=== PATIENT | male | born 1970 | race Caucasian/White ===

== ENCOUNTER 2018-09-03 21:17 | Emergency (ER) | payer SELFPAY ==
[2018-09-03] MEDS ORDERED: LORAZEPAM 1 MG TABLET ONE (22:20)
--- NOTE | 2018-09-03 23:48 | ER ---
Nurse's Notes [facility] Name: Mohan Lou Age: 47 yrs Sex: Male : 1970 Arrival Date: 09/03/2018 Time: 21:30 Bed 17 Private MD: Diagnosis: Adverse effect of amphetamines Presentation: 09/03 21:30 Presenting complaint: EMS states: Called for patient with complaint of visual and lp1 auditory hallucinations; States hx of schizoaffective disorder; States "I usually hear the voices but it's more pronounced today"; Patient states suicidal ideation, plan to use rope for self-harm; States using meth 2 days ago. Transition of care: patient was not received from another setting of care. Onset of symptoms was September 03, 2018. Risk Assessment: Do you want to hurt yourself or someone else? Patient reports desire/thoughts of hurting themselves or someone else. Provider notified. Initial Sepsis Screen: Does the patient meet any 2 criteria? No. Patient's initial sepsis screen is negative. Does the patient have a suspected source of infection? No. Patient's initial sepsis screen is negative. Care prior to arrival: None. 21:30 Method Of Arrival: EMS: [facility] lp1 21:30 Acuity: FEDE 2 lp1 Historical: - Allergies: 21:35 No Known Allergies; lp1 - Home Meds: 21:35 Vistaril Oral [Active]; Prozac Oral [Active]; lp1 - PMHx: 21:35 Anxiety; Back pain; Borderline Diabetes; Depression; Hypertension; Schizo affective lp1 disorder; 21:38 hepatitis C; lp1 - PSHx: 21:35 Appendectomy; lp1 - Immunization history:: Adult Immunizations unknown. - Social history:: Smoking status: Patient uses tobacco products, denies chronic smoking, but will smoke occasionally, chewing tobacco. - Ebola Screening: : No symptoms or risks identified at this time. Screenin:35 Abuse screen: Denies threats or abuse. Denies injuries from another. Nutritional lp1 screening: No deficits noted. Tuberculosis screening: No symptoms or risk factors identified. Fall Risk None identified. Assessment: 21:38 General: Appears in no apparent distress. comfortable, Behavior is calm, cooperative, cc3 appropriate for age. Pain: Denies pain. Neuro: Level of Consciousness is awake, alert, obeys commands, Oriented to person, place, time, situation, Appropriate for age. Cardiovascular: Denies chest pain, Patient's skin is warm and dry. Respiratory: Airway is patent Respiratory effort is even, unlabored, Respiratory pattern is regular, symmetrical. GI: Abdomen is round. : No signs and/or symptoms were reported regarding the genitourinary system. EENT: No signs and/or symptoms were reported regarding the EENT system. Derm: Skin is intact, is healthy with good turgor, Skin is pink, warm \\T\\ dry. normal. Musculoskeletal: Circulation, motion, and sensation intact. Range of motion: intact in all extremities. 22:02 Reassessment: Dr. Davis at bedside to discuss care with patient; Patient denies any lp1 suicidal or homicidal ideations, states "I just need somewhere to sleep for a bit". 23:48 Reassessment: Patient appears in no apparent distress at this time. Patient comfortably cc3 sleeping, kept undisturbed. Dr. Davis ordered discharge for the patient but to keep the patient for some time so he could get some sleep, charge nurse Candie bedolla. 09/04 00:25 Reassessment: Patient appears in no apparent distress at this time. Patient comfortably cc3 sleeping. 01:18 Reassessment: Patient appears in no apparent distress at this time. Patient comfortably cc3 sleeping, kept undisturbed. 02:25 Reassessment: Patient appears in no apparent distress at this time. Patient comfortably cc3 sleeping, kept undisturbed. 03:30 Reassessment: Patient appears in no apparent distress at this time. Patient sleeping, cc3 kept undisturbed. 04:16 Reassessment: Patient appears in no apparent distress at this time. Patient still cc3 sleeping, kept undisturbed. 05:30 Reassessment: Patient appears in no apparent distress at this time. Patient and/or cc3 family updated on plan of care and expected duration. Pain level reassessed. Patient is alert, oriented x 3, equal unlabored respirations, skin warm/dry/pink. Patient denies pain at this time. Patient states feeling better. 06:00 Reassessment: Patient appears in no apparent distress at this time. Patient and/or cc3 family updated on plan of care and expected duration. Pain level reassessed. Patient is alert, oriented x 3, equal unlabored respirations, skin warm/dry/pink. Patient discharged home with discharge papers given. No IV cannula in situ. Patient left ER vitally stable and ambulatory. Patient denies pain at this time. Patient states feeling better. Psych: 09/03 21:30 Subjective: Patient's mood is appropriate Delusions are denied, Hallucinations are lp1 auditory, visual, Having thoughts of suicide. Plan for suicide is States plan to use rope for self-harm. Objective: Patient is cooperative, Speech is normal, Affect is appropriate. Interventions: Removed personal items and placed in bag. Patient placed in hospital gown. Searched person for dangerous items. Belonging list filled out. Suicide Risk Assessment: Sad Person Scale: Sex of patient: Male: Score 1 point. Age of patient: Score 0 point if patient falls outside of specified age parameters. Depression: Score 1 point if signs of depression are present. Previous Attempt: Score 1 point if patient has previously attempted suicide. Substance Abuse: Score 0 point if patient does not abuse alcohol or drugs. Rational Thinking: Score 1 point if patient is lacking rational thinking. Social Support: Score 1 point if social support is lacking and/or unavailable. Organized Plan: Score 1 point if patient had a plan in place. Relationship: Score 1 point if patient is , , , or for a single male Chronic Sickness: Score 0 point if patient does not have a chronic illness, debilitating, or severe disorder. TOTAL POINTS: If total points are 5-6, proposed clinical action is to strongly consider hospitalization, depending upon confidence in the follow-up arrangement. Implement suicide precautions. Safety Checks: Personal items have been removed. Door is open. No visitors are present at this time. Patient uses methamphetamines monthly, Patient uses tobacco chewing tobacco Frequency daily. 22:00 Commitment: Patient will be a voluntary commitment. cc3 Vital Signs: 21:33 BP 141 / 84; Pulse 120; Resp 18; Temp 98.7(O); Pulse Ox 95% on R/A; Weight 111.13 kg; lp1 Height 5 ft. 7 in. (170.18 cm); Pain 0/10; 22:18 BP 135 / 77; Pulse 112; Resp 17 S; Pulse Ox 97% on R/A; cc3 23:27 BP 138 / 71; Pulse 109; Resp 17 S; Pulse Ox 98% on R/A; cc3 09/04 00:36 BP 129 / 73; Pulse 97; Resp 17 S; Pulse Ox 98% on R/A; cc3 03:21 BP 118 / 87; Pulse 87; Resp 16 S; Pulse Ox 98% on R/A; cc3 05:51 BP 128 / 86; Pulse 85; Resp 16 S; Pulse Ox 96% on R/A; cc3 09/03 21:33 Body Mass Index 38.37 (111.13 kg, 170.18 cm) lp1 ED Course: 09/03 21:30 Patient arrived in ED. lp1 21:32 Arash Davis MD is Attending Physician. 21:33 Triage completed. lp1 21:33 Arm band placed on right wrist. lp1 21:38 Juana Cedeno is Primary Nurse. cc3 21:38 Patient has correct armband on for positive identification. Placed in gown. lp1 09/04 06:00 No provider procedures requiring assistance completed. Patient did not have IV access cc3 during this emergency room visit. Administered Medications: 09/03 22:05 Drug: Ativan 2 mg Route: PO; cc3 23:00 Follow up: Response: No adverse reaction cc3 Outcome: 23:48 Discharge ordered by . 09/04 06:00 Discharged to home ambulatory. cc3 Condition: stable Discharge instructions given to patient, Instructed on discharge instructions, follow up and referral plans. Demonstrated understanding of instructions, follow-up care. 06:10 Patient left the ED. cc3 Signatures: Niya Goldman RN RN 1 Arash Davis MD MD Juana Cedeno cc3
--- NOTE | 2018-09-03 23:48 | EDPHYS ---
Physician Documentation [facility] Name: Mohan Lou Age: 47 yrs Sex: Male : 1970 Arrival Date: 09/03/2018 Time: 21:30 Bed 17 Private MD: ED Physician Arash Davis HPI: 09/03 21:59 This 47 yrs old Male presents to ER via EMS with complaints of Psych Problem. gs 21:59 The patient presents to the emergency department with depression, paranoia, psychosis, gs a history of substance abuse, Type: methamphetamines. Onset: The symptoms/episode began/occurred acutely, 3 day(s) ago. Associated signs and symptoms: Pertinent positives; delusions, depression, hallucinations, suicide ideation, Pertinent negatives: chills, fever, suicide ideation. Severity of symptoms: At their worst the symptoms were moderate in the emergency department the symptoms are unchanged. The patient has experienced similar episodes in the past, a few times. The patient has not recently seen a physician. 22:03 no sleep 3-4 days on meth binge. gs Historical: - Allergies: 21:35 No Known Allergies; lp1 - Home Meds: 21:35 Vistaril Oral [Active]; Prozac Oral [Active]; lp1 - PMHx: 21:35 Anxiety; Back pain; Borderline Diabetes; Depression; Hypertension; Schizo affective lp1 disorder; 21:38 hepatitis C; lp1 - PSHx: 21:35 Appendectomy; lp1 - Immunization history:: Adult Immunizations unknown. - Social history:: Smoking status: Patient uses tobacco products, denies chronic smoking, but will smoke occasionally, chewing tobacco. - Ebola Screening: : No symptoms or risks identified at this time. ROS: 21:59 All other systems are negative. gs Exam: 21:59 Head/Face: Normocephalic, atraumatic. Eyes: Pupils equal round and reactive to light, gs extra-ocular motions intact. Lids and lashes normal. Conjunctiva and sclera are non-icteric and not injected. Cornea within normal limits. Periorbital areas with no swelling, redness, or edema. ENT: Nares patent. No nasal discharge, no septal abnormalities noted. Tympanic membranes are normal and external auditory canals are clear. Oropharynx with no redness, swelling, or masses, exudates, or evidence of obstruction, uvula midline. Mucous membranes moist. Neck: Trachea midline, no thyromegaly or masses palpated, and no cervical lymphadenopathy. Supple, full range of motion without nuchal rigidity, or vertebral point tenderness. No Meningismus. Chest/axilla: Normal chest wall appearance and motion. Nontender with no deformity. No lesions are appreciated. Respiratory: Lungs have equal breath sounds bilaterally, clear to auscultation and percussion. No rales, rhonchi or wheezes noted. No increased work of breathing, no retractions or nasal flaring. Abdomen/GI: Soft, non-tender, with normal bowel sounds. No distension or tympany. No guarding or rebound. No evidence of tenderness throughout. Back: No spinal tenderness. No costovertebral tenderness. Full range of motion. Skin: Warm, dry with normal turgor. Normal color with no rashes, no lesions, and no evidence of cellulitis. MS/ Extremity: Pulses equal, no cyanosis. Neurovascular intact. Full, normal range of motion. Neuro: Awake and alert, GCS 15, oriented to person, place, time, and situation. Cranial nerves II-XII grossly intact. Motor strength 5/5 in all extremities. Sensory grossly intact. Cerebellar exam normal. Normal gait. 21:59 Constitutional: The patient appears alert, awake. 21:59 Cardiovascular: Rate: tachycardic, Rhythm: regular, Pulses: no pulse deficits are appreciated. 21:59 Psych: Affect is calm, Oriented to person, place, time, Patient has no thoughts/intents to harm self or others. Judgement / Insight is impaired. Vital Signs: 21:33 BP 141 / 84; Pulse 120; Resp 18; Temp 98.7(O); Pulse Ox 95% on R/A; Weight 111.13 kg; lp1 Height 5 ft. 7 in. (170.18 cm); Pain 0/10; 22:18 BP 135 / 77; Pulse 112; Resp 17 S; Pulse Ox 97% on R/A; cc3 23:27 BP 138 / 71; Pulse 109; Resp 17 S; Pulse Ox 98% on R/A; cc3 07/05 00:36 BP 129 / 73; Pulse 97; Resp 17 S; Pulse Ox 98% on R/A; cc3 03:21 BP 118 / 87; Pulse 87; Resp 16 S; Pulse Ox 98% on R/A; cc3 05:51 BP 128 / 86; Pulse 85; Resp 16 S; Pulse Ox 96% on R/A; cc3 09/03 21:33 Body Mass Index 38.37 (111.13 kg, 170.18 cm) lp1 MDM: 09/03 21:36 Patient medically screened. gs 21:59 Differential diagnosis: drug withdrawal. acute psychotic break, depression, psychosis gs secondary to non-compliance. Data reviewed: vital signs, nurses notes. Administered Medications: 22:05 Drug: Ativan 2 mg Route: PO; cc3 23:00 Follow up: Response: No adverse reaction cc3 Disposition: 09/03/18 23:48 Discharged to Home. Impression: Adverse effect of amphetamines. - Condition is Stable. - Discharge Instructions: Stimulant Use Disorder-Methamphetamines. - Medication Reconciliation Form, Thank You Letter, Antibiotic Education, Prescription Opioid Use form. - Follow up: Private Physician; When: 2 - 3 days; Reason: Re-evaluation by your physician. Signatures: Niya Goldman RN RN [facility] Arash Davis MD MD Juana Cedeno 3 Corrections: (The following items were deleted from the chart) 09/04 06:10 09/03 23:48 09/03/2018 23:48 Discharged to Home. Impression: Adverse effect of cc3 amphetamines. Condition is Stable. Forms are Medication Reconciliation Form, Thank You Letter, Antibiotic Education, Prescription Opioid Use. Follow up: Private Physician; When: 2 - 3 days; Reason: Re-evaluation by your physician. gs
== END 2018-09-04 06:10 | disposition home or self-care (01) ==
LOC: ER 21:17
DX: F15.951 Other stimulant use, unspecified with stimulant-induced psychotic disorder with hallucinations (principal); T43.625A Adverse effect of amphetamines, initial encounter; F25.9 Schizoaffective disorder, unspecified; F17.220 Nicotine dependence, chewing tobacco, uncomplicated
CPT/HCPCS: 99284

== ENCOUNTER 2018-11-17 04:24 | Inpatient (IN) | payer SELFPAY ==
--- OUTSIDE RECORDS SUMMARY | 2018-11-17 04:27 | XMS REPORT ---
:1970 [facility] [address] [place] [address] Care Team Providers Name Role Phone UNKNOWN, REFFERING Primary Care Provider Unavailable CARLY BIRCH M.D. Unavailable Unavailable Problems This patient has no known problems. Allergies, Adverse Reactions, Alerts This patient has no known allergies or adverse reactions. Medications This patient has no known medications. Results Test Description Test Time Test Comments Text Results Atomic Results Result Comments Troponin T 2018-09-14 09:45:49 Test Item Value Reference Range Comments Troponin-T (test <6.000 ng/L 0.000-22.000 The CV of the assay at 99th code=Troponin-T) percentile for both male and female patient population is < 10%. A rise and fall in TAWANNA with at least one value above the 99th percentile with clinical evidence of myocardial ischemia would support a diagnosis of AMI. A delta of at least 20% is recommended to access acute changes in results above the 99th percentile in serial measurements. Stable TAWANNA levels (<20%) delta above the 99th percentile URL would support a diagnosis of chronic myocardial injury. Triiodothyronine [id number] 08:26:05 Test Item Value Reference Range Comments T3 Total (test code=T3 Total) 85.1 ng/dL 80.0-200.0 Thyroid Stimulating [id number] 08:24:29 Test Item Value Reference Range Comments TSH (test code=TSH) 12.330 mIU/mL 0.270-4.200 Thyroxine Free [id number] 08:24:29 Test Item Value Reference Range Comments T4 Free (test code=T4 Free) 0.966 ng/dL 0.930-1.700 RPR [id number] 12:49:16 Test Item Value Reference Range Comments RPR Qual (test code=RPR Qual) Non-Reactive Non-Reactive Reactive Control (test code=Reactive Control) Reactive Weak Reactive Control (test code=Weak Reactive Weak Reactive Control) Non-Reactive Control (test code=Non-Reactive Non-Reactive Control) Lot # (test code=Lot #) [id number] Expiration Dt (test code=Expiration Dt) 01-01-2020 Automated [id number] 07:50:05 Test Item Value Reference Range Comments Neutro Auto (test code=Neutro Auto) 61.4 % 36.0-70.0 Lymph Auto (test code=Lymph Auto) 27.1 % 12.0-44.0 Carl[place] Auto (test code=Carl[place] Auto) 7.9 % 0.0-11.0 Eos, Auto (test code=Eos, Auto) 2.3 % 0.0-7.0 Basophil Auto (test code=Basophil Auto) 0.7 % 0.0-2.0 Neutro Absolute (test code=Neutro Absolute) 8.8 x10 1.6-7.4 Lymph Absolute (test code=Lymph Absolute) 3.89 x10 .50-4.60 [place] Absolute (test code=[place] Absolute) 1.13 x10 .00-1.20 Eos Absolute (test code=Eos Absolute) 0.33 x10 0.00-0.74 Baso Absolute (test code=Baso Absolute) 0.10 x10 0.00-0.21 IG [id number] 07:50:05 Test Item Value Reference Range Comments IG (test code=IG) 0.6 % 0.0-5.0 IG Abs (test code=IG Abs) 0 x10 Complete Blood Count with [id number] 07:50:04 Test Item Value Reference Range Comments WBC (test code=WBC) 14.4 x10 4.4-10.5 RBC (test code=RBC) 4.90 x10 4.10-5.70 Hgb (test code=Hgb) 15.5 g/dL 13.4-17.4 MCV (test code=MCV) 94.70 fL 80.00-100.00 Hct (test code=Hct) 46.4 % 38.7-52.0 MCHC (test code=MCHC) 33.40 g/dL 32.00-37.50 RDW CV (test code=RDW CV) 13.8 % 11.5-14.5 MCH (test code=MCH) 31.6 pg 27.0-32.5 Platelets (test 368.0 x10 140.0-440.0 code=Platelets) MPV (test code=MPV) 9.9 fL Slide Review (test code=Slide Auto Auto Result created by Review) GL_SJM_SLIDE_REV_AUTO nRBC (test code=nRBC) 0 NRBC Abs (test code=NRBC Abs) 0.00 x10 IPF (test code=IPF) 0 % Thyroid Stimulating [id number] 07:49:53 Test Item Value Reference Range Comments TSH (test code=TSH) 12.640 mIU/mL 0.270-4.200 Lipid [id number] 07:43:10 Test Item Value Reference Range Comments Cholesterol Total (test 190 mg/dL 0-200 RISK OF HEART DISEASEPublished code=Cholesterol Total) by [place] [employer] Analyte Optimal Borderline Increased RiskCHOL <200 200-239 >240TRIG <150 150-199 >200HDL Male >60 <40HDL Female >60 <50LDL <100 130-159 >160LDL Near optimal is 100-129 Triglycerides (test 112 mg/dL 9-200 code=Triglycerides) HDL (test code=HDL) 29 mg/dL 40-60 LDL (test code=LDL) 138 mg/dL 0-130 The equation being used in this calculation is LDL=(Chol - HDL) - (Trig / 5) VLDL (test code=VLDL) 22 mg/dL 5-40 The equation being used in this calculation is VLDL=Trig / 5 Chol/HDL (test 6.6 ratio 0.0-5.0 code=Chol/HDL) Lipid [id number] 07:43:10 Test Item Value Reference Range Comments Cholesterol Total (test 190 mg/dL 0-200 RISK OF HEART DISEASEPublished code=Cholesterol Total) by [place] [employer] Analyte Optimal Borderline Increased RiskCHOL <200 200-239 >240TRIG <150 150-199 >200HDL Male >60 <40HDL Female >60 <50LDL <100 130-159 >160LDL Near optimal is 100-129 Triglycerides (test 112 mg/dL 9-200 code=Triglycerides) HDL (test code=HDL) 29 mg/dL 40-60 LDL (test code=LDL) 138 mg/dL 0-130 The equation being used in this calculation is LDL=(Chol - HDL) - (Trig / 5) VLDL (test code=VLDL) 22 mg/dL 5-40 The equation being used in this calculation is VLDL=Trig / 5 Chol/HDL (test 6.6 ratio 0.0-5.0 code=Chol/HDL) LDL/HDL Ratio (test 5 The equation being used in this code=LDL/HDL Ratio) calculation is LDL/HDL Ratio=LDL Calc/HDL Chol Comprehensive Metabolic [id number] 07:43:09 Test Item Value Reference Range Comments Sodium Level (test code=Sodium Level) 142.0 mmol/L 135.0-145.0 Potassium Level (test code=Potassium Level) 4.6 mmol/L 3.5-5.1 Chloride Level (test code=Chloride Level) 104 mmol/L 98-105 CO2 (test code=CO2) 27 mmol/L 22-29 Anion Gap (test code=Anion Gap) 11 mmol/L 7-16 BUN (test code=BUN) 23.90 mg/dL 6.00-20.00 Creatinine Level (test code=Creatinine Level) 1.30 mg/dL 0.70-1.20 BUN/Creat Ratio (test code=BUN/Creat Ratio) 18 Glucose Level (test code=Glucose Level) 111 mg/dL 70-115 Calcium Level (test code=Calcium Level) 9.1 mg/dL 8.3-10.5 Alk Phos (test code=Alk Phos) 70 U/L 40-129 Bilirubin Total (test code=Bilirubin Total) 0.8 mg/dL 0.1-0.9 Albumin Level (test code=Albumin Level) 4.4 g/dL 3.5-5.2 Protein Total (test code=Protein Total) 7.9 g/dL 6.4-8.3 ALT (test code=ALT) 49 U/L 1-41 AST (test code=AST) 44 U/L 1-40 Globulin (test code=Globulin) 3.5 g/dL 2.9-3.1 A/G Ratio (test code=A/G Ratio) 1.3 ratio Comprehensive Metabolic [id number] 07:43:09 Test Item Value Reference Range Comments Sodium Level (test 142.0 mmol/L 135.0-145.0 code=Sodium Level) Potassium Level (test 4.6 mmol/L 3.5-5.1 code=Potassium Level) Chloride Level (test 104 mmol/L 98-105 code=Chloride Level) CO2 (test code=CO2) 27 mmol/L 22-29 Anion Gap (test 11 mmol/L 7-16 code=Anion Gap) BUN (test code=BUN) 23.90 mg/dL 6.00-20.00 Creatinine Level (test 1.30 mg/dL 0.70-1.20 code=Creatinine Level) BUN/Creat Ratio (test 18 code=BUN/Creat Ratio) Glucose Level (test 111 mg/dL 70-115 code=Glucose Level) Calcium Level (test 9.1 mg/dL 8.3-10.5 code=Calcium Level) Alk Phos (test code=Alk 70 U/L 40-129 Phos) Bilirubin Total (test 0.8 mg/dL 0.1-0.9 code=Bilirubin Total) Albumin Level (test 4.4 g/dL 3.5-5.2 code=Albumin Level) Protein Total (test 7.9 g/dL 6.4-8.3 code=Protein Total) ALT (test code=ALT) 49 U/L 1-41 AST (test code=AST) 44 U/L 1-40 Globulin (test 3.5 g/dL 2.9-3.1 code=Globulin) A/G Ratio (test code=A/G 1.3 ratio Ratio) eGFR AA (test code=eGFR >60 mL/min/1.73 m2 eGFR (estimated AA) Glomerular Filtration Rate) is an estimated value, calculated from the patient's serum creatinine using the MDRD equation. It is NOT the patient's actual GFR. The eGFR provides a more clinically useful measure of kidney disease than serum creatinine alone.This calculation takes sex and race into account, if the information is provided. If the race is not provided, and the patient is -[place], multiply by 1.212. If sex is not provided, and the patient is female, multiply by 0.742. Results for patients <18 years of age have not been validated by the MDRD study and should be interpreted with caution. eGFR Result Interpretation:eGFR > or=60 is in the Normal RangeeGFR < 60 may mean kidney diseaseeGFR < 15 may mean kidney failure Ranges recommended by the National Kidney Foundation, http://nkdep.nih.gov Comprehensive Metabolic [id number] 07:43:09 Test Item Value Reference Range Comments Sodium Level (test 142.0 mmol/L 135.0-145.0 code=Sodium Level) Potassium Level (test 4.6 mmol/L 3.5-5.1 code=Potassium Level) Chloride Level (test 104 mmol/L 98-105 code=Chloride Level) CO2 (test code=CO2) 27 mmol/L 22-29 Anion Gap (test 11 mmol/L 7-16 code=Anion Gap) BUN (test code=BUN) 23.90 mg/dL 6.00-20.00 Creatinine Level (test 1.30 mg/dL 0.70-1.20 code=Creatinine Level) BUN/Creat Ratio (test 18 code=BUN/Creat Ratio) Glucose Level (test 111 mg/dL 70-115 code=Glucose Level) Calcium Level (test 9.1 mg/dL 8.3-10.5 code=Calcium Level) Alk Phos (test code=Alk 70 U/L 40-129 Phos) Bilirubin Total (test 0.8 mg/dL 0.1-0.9 code=Bilirubin Total) Albumin Level (test 4.4 g/dL 3.5-5.2 code=Albumin Level) Protein Total (test 7.9 g/dL 6.4-8.3 code=Protein Total) ALT (test code=ALT) 49 U/L 1-41 AST (test code=AST) 44 U/L 1-40 Globulin (test 3.5 g/dL 2.9-3.1 code=Globulin) A/G Ratio (test code=A/G 1.3 ratio Ratio) eGFR AA (test code=eGFR >60 mL/min/1.73 m2 eGFR (estimated AA) Glomerular Filtration Rate) is an estimated value, calculated from the patient's serum creatinine using the MDRD equation. It is NOT the patient's actual GFR. The eGFR provides a more clinically useful measure of kidney disease than serum creatinine alone.This calculation takes sex and race into account, if the information is provided. If the race is not provided, and the patient is -[place], multiply by 1.212. If sex is not provided, and the patient is female, multiply by 0.742. Results for patients <18 years of age have not been validated by the MDRD study and should be interpreted with caution. eGFR Result Interpretation:eGFR > or=60 is in the Normal RangeeGFR < 60 may mean kidney diseaseeGFR < 15 may mean kidney failure Ranges recommended by the National Kidney Foundation, http://nkdep.nih.gov eGFR Non-AA (test 59.70 mL/min/1.73 eGFR (estimated code=eGFR Non-AA) m2 Glomerular Filtration Rate) is an estimated value, calculated from the patient's serum creatinine using the MDRD equation. It is NOT the patient's actual GFR. The eGFR provides a more clinically useful measure of kidney disease than serum creatinine alone.This calculation takes sex and race into account, if the information is provided. If the race is not provided, and the patient is -[place], multiply by 1.212. If sex is not provided, and the patient is female, multiply by 0.742. Results for patients <18 years of age have not been validated by the MDRD study and should be interpreted with caution. eGFR Result Interpretation:eGFR > or=60 is in the Normal RangeeGFR < 60 may mean kidney diseaseeGFR < 15 may mean kidney failure Ranges recommended by the National Kidney Foundation, http://nkdep.nih.gov Alcohol [id number] 12:03:52 Test Item Value Reference Range Comments Ethanol Level (test <0.00 g/dL 0.00-0.01 Intoxicated 0.080 g/dL or more code=Ethanol Level) Ethanol Inst (test <0 code=Ethanol Inst) Comprehensive Metabolic [id number] 12:03:51 Test Item Value Reference Range Comments Sodium Level (test code=Sodium Level) 139.0 mmol/L 135.0-145.0 Potassium Level (test code=Potassium Level) 3.9 mmol/L 3.5-5.1 Chloride Level (test code=Chloride Level) 102 mmol/L 98-105 CO2 (test code=CO2) 23 mmol/L 22-29 Anion Gap (test code=Anion Gap) 14 mmol/L 7-16 BUN (test code=BUN) 27.30 mg/dL 6.00-20.00 Creatinine Level (test code=Creatinine Level) 1.30 mg/dL 0.70-1.20 BUN/Creat Ratio (test code=BUN/Creat Ratio) 21 Glucose Level (test code=Glucose Level) 158 mg/dL 70-115 Calcium Level (test code=Calcium Level) 8.3 mg/dL 8.3-10.5 Alk Phos (test code=Alk Phos) 72 U/L 40-129 Bilirubin Total (test code=Bilirubin Total) 1.0 mg/dL 0.1-0.9 Albumin Level (test code=Albumin Level) 4.5 g/dL 3.5-5.2 Protein Total (test code=Protein Total) 8.5 g/dL 6.4-8.3 ALT (test code=ALT) 57 U/L 1-41 AST (test code=AST) 59 U/L 1-40 Globulin (test code=Globulin) 4.0 g/dL 2.9-3.1 A/G Ratio (test code=A/G Ratio) 1.1 ratio Comprehensive Metabolic [id number] 12:03:51 Test Item Value Reference Range Comments Sodium Level (test 139.0 mmol/L 135.0-145.0 code=Sodium Level) Potassium Level (test 3.9 mmol/L 3.5-5.1 code=Potassium Level) Chloride Level (test 102 mmol/L 98-105 code=Chloride Level) CO2 (test code=CO2) 23 mmol/L 22-29 Anion Gap (test 14 mmol/L 7-16 code=Anion Gap) BUN (test code=BUN) 27.30 mg/dL 6.00-20.00 Creatinine Level (test 1.30 mg/dL 0.70-1.20 code=Creatinine Level) BUN/Creat Ratio (test 21 code=BUN/Creat Ratio) Glucose Level (test 158 mg/dL 70-115 code=Glucose Level) Calcium Level (test 8.3 mg/dL 8.3-10.5 code=Calcium Level) Alk Phos (test code=Alk 72 U/L 40-129 Phos) Bilirubin Total (test 1.0 mg/dL 0.1-0.9 code=Bilirubin Total) Albumin Level (test 4.5 g/dL 3.5-5.2 code=Albumin Level) Protein Total (test 8.5 g/dL 6.4-8.3 code=Protein Total) ALT (test code=ALT) 57 U/L 1-41 AST (test code=AST) 59 U/L 1-40 Globulin (test 4.0 g/dL 2.9-3.1 code=Globulin) A/G Ratio (test code=A/G 1.1 ratio Ratio) eGFR AA (test code=eGFR >60 mL/min/1.73 m2 eGFR (estimated AA) Glomerular Filtration Rate) is an estimated value, calculated from the patient's serum creatinine using the MDRD equation. It is NOT the patient's actual GFR. The eGFR provides a more clinically useful measure of kidney disease than serum creatinine alone.This calculation takes sex and race into account, if the information is provided. If the race is not provided, and the patient is -[place], multiply by 1.212. If sex is not provided, and the patient is female, multiply by 0.742. Results for patients <18 years of age have not been validated by the MDRD study and should be interpreted with caution. eGFR Result Interpretation:eGFR > or=60 is in the Normal RangeeGFR < 60 may mean kidney diseaseeGFR < 15 may mean kidney failure Ranges recommended by the National Kidney Foundation, http://nkdep.nih.gov Comprehensive Metabolic [id number] 12:03:51 Test Item Value Reference Range Comments Sodium Level (test 139.0 mmol/L 135.0-145.0 code=Sodium Level) Potassium Level (test 3.9 mmol/L 3.5-5.1 code=Potassium Level) Chloride Level (test 102 mmol/L 98-105 code=Chloride Level) CO2 (test code=CO2) 23 mmol/L 22-29 Anion Gap (test 14 mmol/L 7-16 code=Anion Gap) BUN (test code=BUN) 27.30 mg/dL 6.00-20.00 Creatinine Level (test 1.30 mg/dL 0.70-1.20 code=Creatinine Level) BUN/Creat Ratio (test 21 code=BUN/Creat Ratio) Glucose Level (test 158 mg/dL 70-115 code=Glucose Level) Calcium Level (test 8.3 mg/dL 8.3-10.5 code=Calcium Level) Alk Phos (test code=Alk 72 U/L 40-129 Phos) Bilirubin Total (test 1.0 mg/dL 0.1-0.9 code=Bilirubin Total) Albumin Level (test 4.5 g/dL 3.5-5.2 code=Albumin Level) Protein Total (test 8.5 g/dL 6.4-8.3 code=Protein Total) ALT (test code=ALT) 57 U/L 1-41 AST (test code=AST) 59 U/L 1-40 Globulin (test 4.0 g/dL 2.9-3.1 code=Globulin) A/G Ratio (test code=A/G 1.1 ratio Ratio) eGFR AA (test code=eGFR >60 mL/min/1.73 m2 eGFR (estimated AA) Glomerular Filtration Rate) is an estimated value, calculated from the patient's serum creatinine using the MDRD equation. It is NOT the patient's actual GFR. The eGFR provides a more clinically useful measure of kidney disease than serum creatinine alone.This calculation takes sex and race into account, if the information is provided. If the race is not provided, and the patient is -[place], multiply by 1.212. If sex is not provided, and the patient is female, multiply by 0.742. Results for patients <18 years of age have not been validated by the MDRD study and should be interpreted with caution. eGFR Result Interpretation:eGFR > or=60 is in the Normal RangeeGFR < 60 may mean kidney diseaseeGFR < 15 may mean kidney failure Ranges recommended by the National Kidney Foundation, http://nkdep.nih.gov eGFR Non-AA (test 59.70 mL/min/1.73 eGFR (estimated code=eGFR Non-AA) m2 Glomerular Filtration Rate) is an estimated value, calculated from the patient's serum creatinine using the MDRD equation. It is NOT the patient's actual GFR. The eGFR provides a more clinically useful measure of kidney disease than serum creatinine alone.This calculation takes sex and race into account, if the information is provided. If the race is not provided, and the patient is -[place], multiply by 1.212. If sex is not provided, and the patient is female, multiply by 0.742. Results for patients <18 years of age have not been validated by the MDRD study and should be interpreted with caution. eGFR Result Interpretation:eGFR > or=60 is in the Normal RangeeGFR < 60 may mean kidney diseaseeGFR < 15 may mean kidney failure Ranges recommended by the National Kidney Foundation, http://nkdep.nih.gov Drugs of Abuse Urine [id number] 11:46:06 Test Item Value Reference Range Comments Amphetamine Screen Ur (test POSITIVE Negative For diagnostic purposes code=Amphetamine Screen Ur) only. Positive results should always be assessed in conjunction with a patient's medical history. Barbiturate Screen Ur (test Negative Negative code=Barbiturate Screen Ur) Benzodiazepines Ur (test Negative Negative code=Benzodiazepines Ur) Cocaine Screen Ur (test Negative Negative code=Cocaine Screen Ur) U Methadone (test code=U Negative Negative Methadone) Opiate Screen Ur (test Negative Negative code=Opiate Screen Ur) U PCP Scrn (test code=U PCP Negative Negative Scrn) U Propoxyphene (test code=U Negative Negative Propoxyphene) Cannabinoid Screen Ur (test Negative Negative code=Cannabinoid Screen Ur) Complete Blood Count with [id number] 11:31:26 Test Item Value Reference Range Comments WBC (test code=WBC) 19.4 x10 4.4-10.5 RBC (test code=RBC) 4.93 x10 4.10-5.70 Hgb (test code=Hgb) 15.6 g/dL 13.4-17.4 MCV (test code=MCV) 92.90 fL 80.00-100.00 Hct (test code=Hct) 45.8 % 38.7-52.0 MCHC (test code=MCHC) 34.10 g/dL 32.00-37.50 RDW CV (test code=RDW CV) 13.8 % 11.5-14.5 MCH (test code=MCH) 31.6 pg 27.0-32.5 Platelets (test 376.0 x10 140.0-440.0 code=Platelets) MPV (test code=MPV) 9.5 fL Slide Review (test code=Slide Auto Auto Result created by Review) GL_SJM_SLIDE_REV_AUTO nRBC (test code=nRBC) 0 NRBC Abs (test code=NRBC Abs) 0.00 x10 IPF (test code=IPF) 0 % Automated [id number] 11:31:26 Test Item Value Reference Range Comments Neutro Auto (test code=Neutro Auto) 75.5 % 36.0-70.0 Lymph Auto (test code=Lymph Auto) 16.1 % 12.0-44.0 [place] Auto (test code=[place] Auto) 6.0 % 0.0-11.0 Eos, Auto (test code=Eos, Auto) 1.1 % 0.0-7.0 Basophil Auto (test code=Basophil Auto) 0.7 % 0.0-2.0 Neutro Absolute (test code=Neutro Absolute) 14.6 x10 1.6-7.4 Lymph Absolute (test code=Lymph Absolute) 3.13 x10 .50-4.60 [place] Absolute (test code=[place] Absolute) 1.16 x10 .00-1.20 Eos Absolute (test code=Eos Absolute) 0.21 x10 0.00-0.74 Baso Absolute (test code=Baso Absolute) 0.13 x10 0.00-0.21 IG [id number] 11:31:26 Test Item Value Reference Range Comments IG (test code=IG) 0.6 % 0.0-5.0 IG Abs (test code=IG Abs) 0 x10 Glycosylated [id number] 10:09:00 Test Item Value Reference Range Comments HBA1c (test code=HBA1C) 5.7 % 4.8-5.9 Basic Metabolic [id number] 09:44:00 Test Item Value Reference Range Comments Sodium (test code=NA) 137 mmol/L 135-145 Potassium (test code=K) 4.2 mmol/L 3.5-5.1 Chloride (test code=CL) 100 mmol/L 98-105 Carbon Dioxide (test 27 mmol/L 22-29 code=CO2) Glucose (test code=GLU) 84 mg/dL 70-115 Blood Urea Nitrogen 19 mg/dL 6-20 (test code=BUN) Creatinine (test 1.0 mg/dL 0.7-1.2 code=CREAT) Calcium (test code=CA) 8.7 mg/dL 8.3-10.5 BUN/Creatinine Ratio 19.0 (test code=BCRATIO) Anion Gap (test 10 mmol/L 7-16 code=AGAP) Estimated GFR (test >60 mL/min/1.73m2 eGFR (estimated Glomerular code=GFR) Filtration Rate) is an estimated value,calculated from the patient's serum creatinine using the MDRD equation.It is NOT the patient's actual GFR. The eGFR provides a more clinicallyuseful measure of kidney disease than serum creatinine alone.This calculation takes sex and race into account, if the informationis provided. If the race is not provided, and the patient isAfrican-[place], multiply by 1.212. If sex is not provided, and thepatient is female, multiply by 0.742. Results for patients <18 years ofage have not been validated by the MDRD study and should be interpretedwith caution.eGFR Result Interpretation:eGFR > or=60 is in the Normal RangeeGFR < 60 may mean kidney diseaseeGFR < 15 may mean kidney failureRanges recommended by the National Kidney Foundation,http://nkdep.nih .gov CBC with [id number] 09:31:00 Test Item Value Reference Range Comments WBC (test code=WBC) 11.6 K/cumm 4.4-10.5 RBC (test code=RBC) 4.55 M/cumm 4.10-5.70 Hemoglobin (test code=HGB) 14.5 gm/dL 13.4-17.4 Hematocrit (test code=HCT) 42.4 % 38.7-52.0 MCV (test code=MCV) 93.2 fL 80-100 MCH (test code=MCH) 31.8 pg 27.0-32.5 MCHC (test code=MCHC) 34.1 g/dL 32.0-37.5 RDW (test code=RDW) 12.7 % 11.5-14.5 Platelet Count (test code=PLTCT) 307 K/cumm 140-440 MPV (test code=MPV) 7.6 fL Diff Method (test code=DIFFM) Auto Neutrophil (test code=NEUT) 46.0 % 36-70 Lymphocyte (test code=LYMPH) 43.1 % 12-44 Monocyte (test code=MONO) 7.6 % 0-11 Eosinophil (test code=EOS) 2.5 % 0-7 Basophil (test code=BASO) 0.7 % 0-2 Neutro Abs (test code=ANEUT) 5.3 K/cumm 1.6-7.4 Lymph Abs (test code=ALYMPH) 5.0 K/cumm 0.5-4.6 [place] Abs (test code=AMONO) 0.9 K/cumm 0.0-1.2 Eos Abs (test code=AEOS) 0.29 K/cumm 0.00-0.74 Baso Abs (test code=ABASO) 0.1 K/cumm 0.00-0.21 RPR, [id number] 13:38:00 Test Item Value Reference Range Comments RPR (test code=RPR) Non-Reactive Non-Reactive Thyroid Stimulating Hormone (TSH)2016-11-27 07:41:00 Test Item Value Reference Range Comments TSH (test code=TSH) 2.18 mIU/mL 0.270-4.200 Lipid [id number] 07:33:00 Test Item Value Reference Range Comments Cholesterol (test 226 mg/dL 0-200 code=CHOL) Triglycerides (test 229 mg/dL 9-200 code=TRIG) HDL (test code=HDL) 27 mg/dL 40-60 Chol/HDL (test 8.4 Ratio 0.0-5.0 code=CHOLPHDL) LDL, Calculated (test 153 0-130 (NOTE)RISK OF HEART code=LDLC) DISEASEPublished by [place] Heart AssociationAnalyte Optimal Boderline Increased RiskCHOL <200 200-239 >240TRIG <150 150-199 >200HDL Male: >60 <40HDL Female: >60 <50LDL <100 130-159 >160LDL NEAR OPTIMAL IS 100-129 VLDL (test code=VLDL) 46 mg/dL 5-40 LDL/HDL (test code=LDLPHDL) 6 Comprehensive Metabolic [id number] 17:07:00 Test Item Value Reference Range Comments Sodium (test code=NA) 133 mmol/L 135-145 Potassium (test code=K) 4.1 mmol/L 3.5-5.1 Chloride (test code=CL) 97 mmol/L 98-105 Carbon Dioxide (test 22 mmol/L 22-29 code=CO2) Glucose (test code=GLU) 120 mg/dL 70-115 Blood Urea Nitrogen (test 32 mg/dL 6-20 code=BUN) Creatinine (test 1.5 mg/dL 0.7-1.2 code=CREAT) Calcium (test code=CA) 9.6 mg/dL 8.3-10.5 Prot Total (test code=TP) 8.8 g/dL 6.4-8.3 Albumin (test code=ALB) 4.7 g/dL 3.5-5.2 A/G Ratio (test 1.1 Ratio code=AGRATIO) Globulin (test code=GLOB) 4.1 2.9-3.1 Bili Total (test 1.1 mg/dL 0.1-0.9 code=TBIL) Alk Phos (test 94 U/L 40-129 code=APHOS) AST (test code=AST) 23 U/L 1-40 ALT (test code=ALT) 18 U/L 1-41 BUN/Creatinine Ratio 21.3 (test code=BCRATIO) Anion Gap (test 14 mmol/L 7-16 code=AGAP) Estimated GFR (test 54 mL/min/1.73m2 eGFR (estimated Glomerular code=GFR) Filtration Rate) is an estimated value,calculated from the patient's serum creatinine using the MDRD equation.It is NOT the patient's actual GFR. The eGFR provides a more clinicallyuseful measure of kidney disease than serum creatinine alone.This calculation takes sex and race into account, if the informationis provided. If the race is not provided, and the patient isAfrican-[place], multiply by 1.212. If sex is not provided, and thepatient is female, multiply by 0.742. Results for patients <18 years ofage have not been validated by the MDRD study and should be interpretedwith caution.eGFR Result Interpretation:eGFR > or=60 is in the Normal RangeeGFR < 60 may mean kidney diseaseeGFR < 15 may mean kidney failureRanges recommended by the National Kidney Foundation,http://nkdep.nih .gov [id number] 17:07:00 Test Item Value Reference Range Comments Amphetamine (test code=AMPH) Negative Negative For diagnostic purposes only, positive results should always be assessedin conjunctionwith the patient's medical history,clinical examination and otherfindings.To fulfill legal requirements, a more specific alternate chemical methodmust be used inorder to obtain a Confirmed analytical result. GC/MS is the preferred confirmatory method. Barbiturates (test code=YANET) Negative Negative Benzodiazepine (test Negative Negative code=COSTA) Cocaine (test code=COCA) Negative Negative Methadone (test code=MTHD) Negative Negative Opiates (test code=OPIA) Negative Negative PCP (test code=PCP) Negative Negative Propoxyphene (test Negative Negative code=PROPOX) THC (test code=THC) Negative Negative Alcohol, Urine (test <0.01 g/dL 0.00-0.01 code=ETOHU) Urinalysis [id number] 16:52:00 Test Item Value Reference Range Comments Color (test code=COLOR) Yellow Yellow,Straw,Pl yellow Clarity (test code=CLAR) Clear Clear Specific [place] (test code=SPGR) 1.027 1.001-1.035 pH (test code=PH) 5.0 5.0-9.0 Ketone (test code=KET) Negative mg/dL Negative Glucose (test code=GLUCUR) Negative mg/dL Negative Protein (test code=PROT) 25 mg/dL Negative Bilirubin (test code=BILI) Negative mg/dL Negative Occult Blood (test code=UDOB) Negative Negative Urobilinogen (test code=UROB) 1.0 mg/dL 0.2-1.0 Nitrite (test code=NIT) Negative Negative Leuk Esterase (test code=LEUK) Negative Negative Micros Exam (test code=MEXAM) Indicated Epithelial Cells (test code=EPI) 6-9 /LPF 0-30 WBC, Urine (test code=UWBC) 0-5 /HPF 0-5 RBC, Urine (test code=URBC) 0-3 /HPF 0-5 Bacteria (test code=BACT) Few /HPF CBC with [id number] 16:43:00 Test Item Value Reference Range Comments WBC (test code=WBC) 18.4 K/cumm 4.4-10.5 RBC (test code=RBC) 5.23 M/cumm 4.10-5.70 Hemoglobin (test code=HGB) 16.4 gm/dL 13.4-17.4 Hematocrit (test code=HCT) 48.6 % 38.7-52.0 MCV (test code=MCV) 93.0 fL 80-100 MCH (test code=MCH) 31.4 pg 27.0-32.5 MCHC (test code=MCHC) 33.8 g/dL 32.0-37.5 RDW (test code=RDW) 12.6 % 11.5-14.5 Platelet Count (test code=PLTCT) 370 K/cumm 140-440 MPV (test code=MPV) 7.5 fL Diff Method (test code=DIFFM) Auto Neutrophil (test code=NEUT) 60.0 % 36-70 Lymphocyte (test code=LYMPH) 31.2 % 12-44 Monocyte (test code=MONO) 7.2 % 0-11 Eosinophil (test code=EOS) 0.9 % 0-7 Basophil (test code=BASO) 0.7 % 0-2 Neutro Abs (test code=ANEUT) 11.1 K/cumm 1.6-7.4 Lymph Abs (test code=ALYMPH) 5.7 K/cumm 0.5-4.6 [place] Abs (test code=AMONO) 1.3 K/cumm 0.0-1.2 Eos Abs (test code=AEOS) 0.17 K/cumm 0.00-0.74 Baso Abs (test code=ABASO) 0.1 K/cumm 0.00-0.21
[2018-11-17] MEDS ORDERED: NA CHLORIDE 0.9% 1,000 ML ONE ×2 (04:55→11:26)
[2018-11-17 05:11] LABS: Absolute Lymphocytes (CBC) 3.6 K/uL (0.7-4.9); Basophils % 0.4 % (0-1.3); Hematocrit 39.1 % (39.6-49.0); MPV 7.7 fL (7.6-11.3); RBC Red Blood Cell Count 4.24 M/uL (4.33-5.43)
[2018-11-17] MEDS ORDERED: NA CHLORIDE 0.9% 2,000 ML ONE (05:15)
[2018-11-17] MEDS ORDERED: NA CHLORIDE 0.9% 100 ML IV ONE (05:15)
[2018-11-17 05:22] LABS: Protime INR 1.06
[2018-11-17 05:31] LABS: Blood Morphology Comment NOT SEEN (NOT SEEN); Platelet Estimate ADEQ
[2018-11-17 05:46] LABS: ALT/SGPT 32 U/L (12-78); AST/SGOT 24 U/L (15-37); Albumin 3.7 g/dL (3.4-5.0); Alkaline Phosphatase 77 U/L (45-117); BUN Blood Urea Nitrogen 46 mg/dL (7-18); Bicarbonate 22 mmol/L (21-32); Bilirubin Direct 0.3 mg/dL (0-0.2); Bilirubin Total 1.3 mg/dL (0.2-1.0); Glucose Level 110 mg/dL (74-106); Magnesium 2.2 mg/dL (1.8-2.4); NT PRO-BNP 292 pg/mL (<125); Potassium 4.2 mmol/L (3.5-5.1); Protein, Total 8.2 g/dL (6.4-8.2); Sodium Level 129 mmol/L (136-145); Troponin (Emerg Dept Use Only) < 0.02 ng/mL (0.0-0.045)
[2018-11-17] MEDS ORDERED: PIPER/TAZO/NS 2.25gm 2.25 GM/100 ML BAG ONE (06:06)
[2018-11-17 06:53] LABS: Barbiturates NEGATIVE (NEGATIVE); Benzodiazepines NEGATIVE (NEGATIVE); Cocaine NEGATIVE (NEGATIVE); METHAMPHETAM POSITIVE (NEGATIVE); Methadone NEGATIVE (NEGATIVE); Opiates NEGATIVE (NEGATIVE); Phencyclidine NEGATIVE (NEGATIVE); THC Cannibis NEGATIVE (NEGATIVE)
--- NOTE | 2018-11-17 07:04 | ER ---
Nurse's Notes [facility] Name: Mohan Lou Age: 48 yrs Sex: Male : 1970 Arrival Date: 11/17/2018 Time: 04:25 Bed 7 Private MD: Diagnosis: Acute kidney failure;Syncope and collapse;LEUKOCYTOSIS Presentation: 11/17 04:58 Presenting complaint: Patient states: "I have fainted multiple times today"; Patient lp1 states injecting Meth on Friday and states feeling "weird" ever since. Transition of care: patient was not received from another setting of care. Onset of symptoms was November 17, 2018. Risk Assessment: Do you want to hurt yourself or someone else? Patient reports no desire to harm self or others. Initial Sepsis Screen: Does the patient meet any 2 criteria? Systolic BP < 90 mmHg. HR > 90 bpm. Yes Does the patient have a suspected source of infection? Yes: Other: Patient denies any symptoms. Care prior to arrival: None. 04:58 Method Of Arrival: Wheelchair lp1 04:58 Acuity: FEDE 2 lp1 Historical: - Allergies: 04:58 No Known Allergies; lp1 - Home Meds: 04:58 Prozac Oral [Active]; risperidone oral oral [Active]; Hydroxyzine Oral [Active]; lp1 - PMHx: 04:58 Anxiety; Back pain; Borderline Diabetes; Depression; Hepatitis C; Hypertension; Schizo lp1 affective disorder; - PSHx: 04:58 Appendectomy; lp1 - Immunization history:: Adult Immunizations up to date. - Social history:: Smoking status: Patient/guardian denies using tobacco, Patient uses street drugs, Methamphetamine (Meth). - Ebola Screening: : No symptoms or risks identified at this time. Screenin:00 Abuse screen: Denies threats or abuse. Denies injuries from another. Nutritional lp1 screening: No deficits noted. Tuberculosis screening: No symptoms or risk factors identified. Fall Risk Total Garner Fall Scale indicates High Risk Score (45 or more points). Fall prevention measures have been instituted. Side Rails Up X 2 Family Present and informed to notify staff if the need to leave the bedside As available patient and family educated on Fall Prevention Program and Strategies. Assessment: 05:01 General: Appears uncomfortable, Behavior is calm. Pain: Denies pain. Neuro: Level of lp1 Consciousness is awake, alert, obeys commands, Oriented to person, place, situation, [place] are equal bilaterally Moves all extremities. Full function Gait is unsteady, Speech is normal, Reports dizziness, a syncopal episode. Cardiovascular: Patient's skin is warm and dry. Respiratory: Respiratory effort is even, Respiratory pattern is regular, Breath sounds are clear bilaterally. GI: Abdomen is non-distended. : No signs and/or symptoms were reported regarding the genitourinary system. EENT: No signs and/or symptoms were reported regarding the EENT system. Derm: Skin is intact, Skin is dry, Skin is normal. Musculoskeletal: No signs and/or symptoms reported regarding the musculoskeletal system. 06:00 Reassessment: Patient appears in no apparent distress at this time. Patient is alert, lp1 oriented x 3, equal unlabored respirations, skin warm/dry/pink. 07:37 Reassessment: Patient appears in no apparent distress at this time. Patient and/or ph family updated on plan of care and expected duration. Pain level reassessed. Patient is alert, oriented x 3, equal unlabored respirations, skin warm/dry/pink. Pt resting quietly, family at bedside, awaiting room assignment, VSS. 08:42 Reassessment: Patient appears in no apparent distress at this time. No changes from [facility] previously documented assessment. Patient and/or family updated on plan of care and expected duration. Pain level reassessed. Patient is alert, oriented x 3, equal unlabored respirations, skin warm/dry/pink. ER and lab attempted to draw second set of blood cultures, unsuccessful, second set of blood cultures cancelled Patient denies pain at this time. 10:42 Reassessment: Diet tray requested at 0920, no tray was delivered, dietary reports the [facility] pt will have to wait until lunch is delievered. 12:20 Reassessment: Attempted to call report, nurse unavailable. jl 13:13 Reassessment: Attempted to call report, nurse unavailable. 7 Vital Signs: 04:56 BP 81 / 63; Pulse 113; Resp 20; Temp 97.7(O); Pulse Ox 99% on R/A; Weight 104.33 kg; lp1 Height 5 ft. 7 in. (170.18 cm); Pain 0/10; 05:10 BP 89 / 60; Pulse 101; Resp 17; Pulse Ox 98% on R/A; lp1 05:30 BP 91 / 56; Pulse 100; Resp 20; Pulse Ox 99% on R/A; lp1 06:15 BP 102 / 71; Pulse 93; Resp 22; Pulse Ox 100% on R/A; lp1 06:30 BP 104 / 72; Pulse 90; Resp 19; Pulse Ox 100% on R/A; lp1 07:17 BP 102 / 65; Pulse 92; Resp 18; Temp 97.8; Pulse Ox 100% on R/A; ph 08:42 BP 105 / 71; Pulse 103; Resp 16 S; Pulse Ox 100% on R/A; Pain 0/10; jl7 12:00 BP 110 / 68; Pulse 80; Resp 16 S; Pulse Ox 100% on R/A; jl7 04:56 Body Mass Index 36.02 (104.33 kg, 170.18 cm) lp1 ED Course: 04:25 Patient arrived in ED. ag3 04:40 Krishna Lanza MD is Attending Physician. tw4 04:45 Inserted saline lock: 20 gauge in left antecubital area, using aseptic technique. Blood lp1 collected. 04:45 EKG done, by ED staff, reviewed by Krishna Lanza MD. lp1 04:56 Niya Goldman, RN is Primary Nurse. lp1 04:57 Arm band placed on left wrist. lp1 05:00 Triage completed. lp1 05:00 Patient has correct armband on for positive identification. Placed in gown. Bed in low lp1 position. Call light in reach. Side rails up X2. laboratory monitor on. Pulse ox on. NIBP on. 05:07 X-ray completed. Portable x-ray completed in exam room. Patient tolerated procedure kw well. 05:07 XRAY Chest (1 view) In Process Unspecified. EDMS 05:15 First set of blood cultures drawn by me. Inserted saline lock: 18 gauge in right lp1 antecubital area, using aseptic technique. 05:28 Note: Patient is to have PE CT done without waiting for creatinine level per Dr. anibal Lanza.. 05:47 Notified ED physician of a critical lab result(s). Creatinine 5.17. lp1 06:11 CT Chest For PE Angio In Process Unspecified. EDMS 06:14 CT Head Brain wo Cont In Process Unspecified. EDMS 07:02 Alexa Buitrago MD is Hospitalizing Provider. tw4 07:38 No provider procedures requiring assistance completed. Patient admitted, IV remains in ph place. 08:52 Repeat lab(s) drawn. by id, sent to lab. jl7 Administered Medications: 04:56 Drug: NS 0.9% 1000 ml Route: IV; Rate: 1000 ml; Site: left antecubital; lp1 05:38 Follow up: IV Status: Completed infusion; IV Intake: 1000ml lp1 05:15 Drug: NS 0.9% (30 ml/kg) 30 ml/kg Route: IV; Rate: bolus; Site: left antecubital; lp1 12:34 Follow up: Response: No adverse reaction; IV Status: Completed infusion; IV Intake: jl7 2000ml 05:38 CANCELLED (Duplicate Order): NS 0.9% (30 ml/kg) 30 ml/kg IV at bolus once; Sepsis lp1 Protocol 06:06 Drug: Zosyn 2.25 grams Route: IVPB; Infused Over: 60 mins; Site: right antecubital; lp1 07:06 Follow up: Response: No adverse reaction; IV Status: Completed infusion jl7 Intake: 05:38 IV: 1000ml; Total: 1000ml. lp1 12:34 IV: 2000ml; Total: 3000ml. jl7 Output: 06:15 Urine: 300ml (Voided); Total: 300ml. lp1 07:17 Urine: 650ml (Voided); Total: 950ml. ph 09:23 Urine: 750ml (Voided); Total: 1700ml. ph Outcome: 07:03 Decision to Hospitalize by Provider. tw4 14:36 Admitted to Tele accompanied by tech, via wheelchair, room 216, with chart, Report jl7 called to [place]LLY [place] 14:36 Condition: stable 14:36 Discharge instructions given to patient, Instructed on the need for admit, Demonstrated understanding of instructions. 15:17 Patient left the ED. la1 Signatures: Dispatcher [employer] EDMS Sharita Ramos Laura, RN RN lp1 Harsha Pierson RN RN la1 Юлия Treadwell RN RN Camron Escoto, RN RN jl7 Krishna Lanza MD MD tw4 Valentina Regalado mw3 Danielle Estes ag3 Corrections: (The following items were deleted from the chart) 12:34 07:15 Response: No adverse reaction; IV Status: Completed infusion; IV Intake: 3129ml jl7 jl7
--- NOTE | 2018-11-17 07:04 | EDPHYS ---
Physician Documentation [facility] Name: Mohan Lou Age: 48 yrs Sex: Male : 1970 Arrival Date: 11/17/2018 Time: 04:25 Bed 7 Private MD: ED Physician Krishna Lanza HPI: 11/17 05:46 This 48 yrs old Male presents to ER via Wheelchair with complaints of tw4 Fainting. 05:46 The patient has experienced syncope. The patient has experienced syncope, lost tw4 consciousness. Onset: The symptoms/episode began/occurred today. Duration: This was a single episode. Context: the episode(s) was witnessed, by no one. Associated injury: The patient did not suffer any apparent associated injury. Associated signs and symptoms: The patient has no apparent associated signs or symptoms. The patient has not experienced similar symptoms in the past. pt admits to meth use 1.5 days ago. Historical: - Allergies: 04:58 No Known Allergies; lp1 - Home Meds: 04:58 Prozac Oral [Active]; risperidone oral oral [Active]; Hydroxyzine Oral [Active]; lp1 - PMHx: 04:58 Anxiety; Back pain; Borderline Diabetes; Depression; Hepatitis C; Hypertension; Schizo lp1 affective disorder; - PSHx: 04:58 Appendectomy; lp1 - Immunization history:: Adult Immunizations up to date. - Social history:: Smoking status: Patient/guardian denies using tobacco, Patient uses street drugs, Methamphetamine (Meth). - Ebola Screening: : No symptoms or risks identified at this time. ROS: 05:46 Constitutional: Negative for fever, chills, and weight loss, Eyes: Negative for injury, tw4 pain, redness, and discharge, Respiratory: Negative for shortness of breath, cough, wheezing, and pleuritic chest pain, Abdomen/GI: Negative for abdominal pain, nausea, vomiting, diarrhea, and constipation, Back: Negative for injury and pain, : Negative for injury, bleeding, discharge, and swelling, Skin: Negative for injury, rash, and discoloration. 05:46 Neuro: Positive for seizure activity. Exam: 05:46 Constitutional: This is a well developed, well nourished patient who is awake, alert, tw4 and in no acute distress. Head/Face: Normocephalic, atraumatic. Chest/axilla: Normal chest wall appearance and motion. Nontender with no deformity. No lesions are appreciated. Cardiovascular: Regular rate and rhythm with a normal S1 and S2. No gallops, murmurs, or rubs. Normal PMI, no JVD. No pulse deficits. Respiratory: Lungs have equal breath sounds bilaterally, clear to auscultation and percussion. No rales, rhonchi or wheezes noted. No increased work of breathing, no retractions or nasal flaring. Abdomen/GI: Soft, non-tender, with normal bowel sounds. No distension or tympany. No guarding or rebound. No evidence of tenderness throughout. Back: No spinal tenderness. No costovertebral tenderness. Full range of motion. MS/ Extremity: Pulses equal, no cyanosis. Neurovascular intact. Full, normal range of motion. Neuro: Awake and alert, GCS 15, oriented to person, place, time, and situation. Cranial nerves II-XII grossly intact. Motor strength 5/5 in all extremities. Sensory grossly intact. Cerebellar exam normal. Normal gait. Vital Signs: 04:56 BP 81 / 63; Pulse 113; Resp 20; Temp 97.7(O); Pulse Ox 99% on R/A; Weight 104.33 kg; lp1 Height 5 ft. 7 in. (170.18 cm); Pain 0/10; 05:10 BP 89 / 60; Pulse 101; Resp 17; Pulse Ox 98% on R/A; lp1 05:30 BP 91 / 56; Pulse 100; Resp 20; Pulse Ox 99% on R/A; lp1 06:15 BP 102 / 71; Pulse 93; Resp 22; Pulse Ox 100% on R/A; lp1 06:30 BP 104 / 72; Pulse 90; Resp 19; Pulse Ox 100% on R/A; lp1 07:17 BP 102 / 65; Pulse 92; Resp 18; Temp 97.8; Pulse Ox 100% on R/A; ph 08:42 BP 105 / 71; Pulse 103; Resp 16 S; Pulse Ox 100% on R/A; Pain 0/10; jl7 12:00 BP 110 / 68; Pulse 80; Resp 16 S; Pulse Ox 100% on R/A; jl7 04:56 Body Mass Index 36.02 (104.33 kg, 170.18 cm) lp1 MDM: 04:40 Patient medically screened. 11/17 04:46 Order name: Basic Metabolic Panel; Complete Time: 06:03 [facility] 11/17 06:03 Interpretation: Normal except: NA 129; CL 96; GLUC 110; BUN 46; CRE 5.17; GFR 12. 11/17 04:46 Order name: CBC with Diff; Complete Time: 06:03 [facility] 11/17 06:03 Interpretation: Normal except: WBC 22.6; RBC 4.24; HCT 39.1. 11/17 04:46 Order name: LFT's; Complete Time: 06:03 [facility] 11/17 06:03 Interpretation: Normal except: BILIT 1.3; BILID 0.3; GLOB 4.5; A/G 0.8. 11/17 04:46 Order name: Magnesium; Complete Time: 06:04 [facility] 11/17 06:04 Interpretation: Within normal limits: MG 2.2. 11/17 04:46 Order name: NT PRO-BNP; Complete Time: 06:03 [facility] 11/17 06:03 Interpretation: Normal except: NT PRO-BNP 292. 11/17 04:46 Order name: PT-INR; Complete Time: 06:04 [facility] 11/17 04:46 Order name: Troponin (emerg Dept Use Only); Complete Time: 07:00 [facility] 11/17 04:46 Order name: Urine Drug Screen; Complete Time: 07:00 [facility] 11/17 05:05 Order name: Salicylate; Complete Time: 06:04 11/17 06:04 Interpretation: Within normal limits: SHERRIE < 1.7. 11/17 05:05 Order name: Acetaminophen; Complete Time: 07:00 11/17 05:05 Order name: ETOH Level 11/17 05:13 Order name: Lactate; Complete Time: 07:00 [facility] 11/17 05:22 Order name: Blood Culture Adult (2) [facility] 11/17 05:31 Order name: Manual Differential; Complete Time: 07:00 EDMS 11/17 04:46 Order name: XRAY Chest (1 view) 11/17 04:46 Order name: EKG; Complete Time: 04:47 [facility] 11/17 04:46 Order name: Cardiac monitoring; Complete Time: 04:47 tw11/17 04:46 Order name: EKG - Nurse/Tech; Complete Time: 04:47 tw11/17 04:46 Order name: IV Saline Lock; Complete Time: 04:47 11/17 05:12 Order name: CT Head Brain wo Cont tw4 11/17 05:12 Order name: CT Chest For PE Angio tw4 11/17 06:17 Order name: Urine Dipstick--Ancillary (enter results) mw2 11/17 07:05 Order name: CK tw4 11/17 09:22 Order name: Diet Renal; Complete Time: 09:23 ph 11/17 10:43 Order name: Diet Renal; Complete Time: 10:44 jl7 11/17 12:50 Order name: Acetaminophen Level EDWV 11/17 04:46 Order name: Labs collected and sent; Complete Time: 04:47 tw4 11/17 04:46 Order name: O2 Per Protocol; Complete Time: 04:47 tw11/17 04:46 Order name: O2 Sat Monitoring; Complete Time: 04:47 EC:48 Rate is 110 beats/min. Rhythm is regular, Sinus tachycardia. QRS [place] is Normal. [place] tw4 interval is normal. QRS interval is normal. QT interval is normal. No Q waves. T waves are Flattened in leads III, V2. No ST changes noted. Clinical impression: Sinus tachycardia. Interpreted by me. Reviewed by me. Administered Medications: 04:56 Drug: NS 0.9% 1000 ml Route: IV; Rate: 1000 ml; Site: left antecubital; lp1 05:38 Follow up: IV Status: Completed infusion; IV Intake: 1000ml lp1 05:15 Drug: NS 0.9% (30 ml/kg) 30 ml/kg Route: IV; Rate: bolus; Site: left antecubital; lp1 12:34 Follow up: Response: No adverse reaction; IV Status: Completed infusion; IV Intake: jl7 2000ml 05:38 CANCELLED (Duplicate Order): NS 0.9% (30 ml/kg) 30 ml/kg IV at bolus once; Sepsis lp1 Protocol 06:06 Drug: Zosyn 2.25 grams Route: IVPB; Infused Over: 60 mins; Site: right antecubital; lp1 07:06 Follow up: Response: No adverse reaction; IV Status: Completed infusion jl7 Disposition: 11/17/18 07:03 Hospitalization ordered by Alexa Buitrago for Inpatient Admission. Preliminary diagnosis are Acute kidney failure, Syncope and collapse, LEUKOCYTOSIS. - Bed requested for Telemetry/MedSurg (Inpatient). - Status is Inpatient Admission. la1 - Condition is Fair. - Problem is new. - Symptoms are unchanged. UTI on Admission? No Signatures: Dispatcher [employer] EDMS Lena Michael Niya Goldman RN RN lp1 Harsha Pierson RN RN la1 Krishna Lanza MD MD tw4 Camron Silva RN jl7 Corrections: (The following items were deleted from the chart) 05:38 05:13 NS 0.9% (30 ml/kg) 30 ml/kg IV at bolus once; Sepsis Protocol ordered. 4 lp1 10:40 07:03 Hospitalization Ordered by Alexa Buitrago MD for Inpatient Admission. Preliminary bd diagnosis is Acute kidney failure; Syncope and collapse; LEUKOCYTOSIS. Bed requested for Telemetry/MedSurg (Inpatient). Status is Inpatient Admission. Condition is Fair. Problem is new. Symptoms are unchanged. UTI on Admission? No. tw4 12:06 10:40 11/17/2018 07:03 Hospitalization Ordered by Alexa Buitrago MD for Inpatient bd Admission. Preliminary diagnosis is Acute kidney failure; Syncope and collapse; LEUKOCYTOSIS. Bed requested for [facility] ER HOLD. Status is Inpatient Admission. Condition is Fair. Problem is new. Symptoms are unchanged. UTI on Admission? No. bd 15:17 12:06 11/17/2018 07:03 Hospitalization Ordered by Alexa Buitrago MD for Inpatient la1 Admission. Preliminary diagnosis is Acute kidney failure; Syncope and collapse; LEUKOCYTOSIS. Bed requested for Telemetry/MedSurg (Inpatient). Status is Inpatient Admission. Condition is Fair. Problem is new. Symptoms are unchanged. UTI on Admission? No. bd
[2018-11-17 07:12] LABS: Urine Blood 1+ (NEG); Urine Glucose NEGATIVE (NEG); Urine Protein 1+ (NEG); Urine pH 5.5 (5.0-7.0)
--- NOTE | 2018-11-17 08:24 | RAD REPORT ---
EXAM DESCRIPTION: RAD - Chest Single View - 11/17/2018 5:10 am CLINICAL HISTORY: PALPITATIONS Chest pain. COMPARISON: No comparisons FINDINGS: Portable technique limits examination quality. The lungs are grossly clear. The heart is upper limit of normal in size. No displaced fractures. IMPRESSION: No acute intrathoracic process suspected.
--- NOTE | 2018-11-17 10:50 | RAD REPORT ---
EXAM DESCRIPTION: CT Angiography Chest With Intravenous Contrast CLINICAL HISTORY: The patient is 48 years old and is Male; R/O PE TECHNIQUE: Axial computed tomographic angiography images of the chest with intravenous contrast. S agittal and coronal reformatted images were created and reviewed. This CT exam was performed using one or more of the following dose reduction techniques: automated exposure control, adjustment of t he mA and/or kV according to patient size, and/or use of iterative reconstruction technique. MIP re constructed images were created and reviewed. COMPARISON: No relevant prior studies available. FINDINGS: Pulmonary arteries: Unremarkable. No pulmonary embolism. Aorta: No acute findings. No thoracic aortic aneurysm. Lungs: Unremarkable. No mass. No consolidation. Pleural space: Unremarkable. No significant effusion. No pneumothorax. Heart: Unremarkable. No cardiomegaly. No significant pericardial effusion. No evidence of RV dysfunction. Bones/joints: No acute fracture. No dislocation. Soft tissues: Unremarkable. Lymph nodes: Unremarkable. No enlarged lymph nodes. IMPRESSION: No pulmonary embolus. No acute findings. Electronically signed by: Williams Warner MD 11/17/2018 6:20 AM CDT Due to temporary technical issues with the PACS/Fluency reporting system, reports are being signed by the in house radiologist as a courtesy to ensure prompt reporting. The interpreting radiologist is f ully responsible for the content of the report.
--- NOTE | 2018-11-17 10:51 | RAD REPORT ---
EXAM DESCRIPTION: CT Head Without Intravenous Contrast CLINICAL HISTORY: The patient is 48 years old and is Male; SYNCOPE TECHNIQUE: Axial computed tomography images of the head/brain without intravenous contrast. [place] and coronal reformatted images were created and reviewed. This CT exam was performed using one o r more of the following dose reduction techniques: automated exposure control, adjustment of the mA and/or kV according to patient size, and/or use of iterative reconstruction technique. COMPARISON: No relevant prior studies available. FINDINGS: Brain: Unremarkable. No hemorrhage. No significant white matter disease. No edema. Ventricles: Unremarkable. No ventriculomegaly. Bones/joints: Unremarkable. No acute fracture. Soft tissues: Unremarkable. Sinuses: Unremarkable as visualized. No acute sinusitis. Mastoid air cells: Unremarkable as visualized. No mastoid effusion. IMPRESSION: No acute intracranial findings. Electronically signed by: Williams Warner MD 11/17/2018 6:16 AM CDT Due to temporary technical issues with the PACS/Fluency reporting system, reports are being signed by the in house radiologist as a courtesy to ensure prompt reporting. The interpreting radiologist is f ully responsible for the content of the report.
[2018-11-17] MEDS ORDERED: ACETAMINOPHEN 500 MG TAB PO PRN (11:10)
[2018-11-17] MEDS ORDERED: ONDANSETRON 4 MG/2 ML VIAL IV PRN (11:10)
[2018-11-17] MEDS: NA CHLORIDE 0.9% 1,000 ML IV SCH ×3 (11:10→20:25)
--- NOTE | 2018-11-17 11:34 | EKG ---
Test Date: 2018-11-17 Test Time: 04:41:58 [place] Drier Tender: MEASUREMENT RESULTS: Intervals: Rate: 110 WY: 150 QRSD: 82 QT: 326 QTc: 441 [place]: P: 28 WY: 150 QRS: -6 T: 36 INTERPRETIVE STATEMENTS: Sinus tachycardia Inferior infarct, age undetermined Anterior infarct, age undetermined Abnormal ECG Compared to ECG 02/01/1995 15:38:00 Myocardial infarct finding now present Electronically Signed On 11-17-18 11:33:32 CDT by Ko Elena
--- NOTE | 2018-11-17 15:21 | P.CNS ---
Date of Consult: 11/17/18 Reason for Consult: MARVIN Chief Complaint: weakness, fainting History of Present Illness: A 48 y/o man with PMHx of bipolar disorder, HTN on lisniopril Pt presented for syncope episode and weakness Pt have no similar episodes before denied chest pain, headache , excessive sweating or diarrhea denied NSAID exposure in ER WBC 22, Cr 5.2, NA 129 exposed to contrast Allergies No Known Allergies Allergy (Unverified 09/10/15 16:58) Home Medications: Fluoxetine HCl [Prozac] 60 mg PO DAILY 11/17/18 Levothyroxine Sodium 88 mcg PO DAILY 11/17/18 Lisinopril 40 mg PO DAILY 11/17/18 Risperidone [Risperdal] 1 mg PO [id number] 11/17/18 Risperidone [Risperdal] 2 mg PO BEDTIME 11/17/18 hydrOXYzine HCl [Atarax] 50 mg PO BID MDD 100 mg 11/17/18 - Social History Smoking Status: Current some day smoker Physical Examination General: In no apparent distress, Oriented x3 HEENT: Atraumatic Neck: Supple, Without JVD or thyroid abnormality Respiratory: Clear to auscultation bilaterally, Normal air movement Cardiovascular: No edema, Normal pulses, Regular rate/rhythm, Normal S1 S2, No gallops, No rubs, No murmurs Gastrointestinal: Normal bowel sounds, Soft and benign, No tenderness Musculoskeletal: No swelling Laboratory Data (last 24 hrs) 11/17/18 04:45: PT 12.5, INR 1.06 11/17/18 04:45: WBC 22.6 H*, Hgb 13.7, Hct 39.1 L, Plt Count 340 11/17/18 04:45: Sodium 129 L, Potassium 4.2, BUN 46 H, Creatinine 5.17 H*, Glucose 110 H, Magnesium 2.2, Total Bilirubin 1.3 H, AST 24, ALT 32, Alkaline Phosphatase 77 - Problems (1) MARVIN (acute kidney injury) Current Visit: Yes Status: Acute Conclusions/Impression: MARVIN vs progressive CKD non oliguric Unknown baseline Cr , as per Pt no blood w/u done in the last 2yrs will order renal US and full serology w/u cont IVF I excpect that his RFT might deteriorate after contrast exposure if RFT cont to deteriorate then pt will to start on HD hyponatremia depletional vs SSRI dc SSRi IVF renal lytes will send for W/u Leuckocytosis F/U cultures Syncope as per primary team
--- NOTE | 2018-11-17 16:35 | RAD REPORT ---
EXAM DESCRIPTION: US - Renal Ultrasound-Complete - 11/17/2018 4:16 pm CLINICAL HISTORY: Acute renal insufficiency COMPARISON: None. FINDINGS: The right kidney measures 10 cm with an increased echotexture. The left kidney measures 11 cm with an increased echotexture. Hydronephrosis is not seen. No gross abnormality of bladder is seen IMPRESSION: Increased renal echotexture consistent with parenchymal disease
[2018-11-17 19:34] LABS: Urine Protein/Creatinine Ratio 0.56 ratio (<0.15)
[2018-11-17 19:36] LABS: Urine Appearance CLEAR; Urine Bilirubin NEGATIVE (NEG); Urine Blood TRACE (NEG); Urine Color YELLOW; Urine Glucose 2+ (NEG); Urine Protein NEGATIVE (NEG)
[2018-11-17 19:41] LABS: Urine Microscopic Reflex ORDER UMIC
[2018-11-17 19:59] LABS: Urine Bacteria <20 /HPF (NONE SEEN); Urine Culture Reflex Order NOT NEEDED; Urine RBC <5 /HPF (NONE SEEN)
[2018-11-17] MEDS: RISPERIDONE 0.25 MG TABLET PO SCH (20:24)
[2018-11-17] MEDS: hydrOXYzine HCl 25 MG TAB PO SCH (20:24)
[2018-11-17] MEDS ORDERED: HOME MED 1 EA UNK (Hydroxyzine Hcl [Atarax] 50 MG) PO SCH (21:00)
--- NOTE | 2018-11-17 23:11 | HP ---
Date of Admission: 11/17/2018 Chief Complaint: Syncope. History Of Present Illness: The patient is a 48-year-old male with past medical history of schizoaff ective disorder, hypothyroidism, hypertension, and hepatitis C, comes in for syncopal episode. Cristi stephanie states that he was in his usual state of health until night prior to admission when the patient to ok some IV methamphetamine and had multiple syncopal episodes. He was walking out of [employer] and had a fall. He otherwise denies any seizure-type activity. Patient does not recall how long h e was out for, but was less than a minute or so as he was picked up by bystanders. Patient again had episode of syncope at home. Otherwise, patient denies any fevers, chills, shortness of breath, naus ea, vomiting. States that he does remain hydrated. Patient's symptoms are constant, moderate, progr essively worsening. Therefore, came into the ER for further evaluation. Upon arrival, his workup re vealed a blood pressure of 81/63. He is tachycardic, did not have a fever. Patient was given 2 L of IV fluids with normal saline. Blood pressure improved. Workup revealed a creatinine of 5.17 with u nknown baseline, however, patient denies any history of kidney disease. CK level was also elevated. Tox screen was positive for amphetamines. Patient was referred for admission. When seen in the ER, he was awake, alert, and oriented x3, in some mild distress. Past Medical History: Schizoaffective disorder, hypertension, hypothyroidism, chronic back pain, bor derline diabetes, hepatitis C, depression. Past Surgical History: Appendectomy. Allergies: NO KNOWN DRUG ALLERGIES. Medications: Prozac, risperidone, hydroxyzine, levothyroxine as well as lisinopril. Social History: Patient smokes cigarettes socially. Drinks alcohol socially as well. No daily drin deborah. Patient does admit to using illicit drugs including methamphetamine through the IV. Usually s tays with his aunt. Family History: States that psychiatric illnesses run in the family. Review of Systems: Ten-point system reviewed, negative except as per HPI. Physical Examination: Vital Signs: Blood pressure 81/63, pulse 113, respirations 20, temperature 97.7, O2 of 99% on room a ir. General: Awake, alert, oriented x3, in some mild distress. Obese male. HEENT: Normocephalic, atraumatic. PERRLA. EOMI. Dry mucous membranes. Oropharynx is clear. Poor dentition. Conjunctiva is anicteric. Neck: Supple. No JVD. Trachea midline. CV: S1, S2. Sinus tachycardia. Peripheral pulses present. Respiratory: Moving air well bilaterally. No wheezing or stridor. No use of accessory muscles. Gastrointestinal: Abdomen is soft, nontender, nondistended. Positive bowel sounds. No guarding or rigidity. Extremities: No clubbing, cyanosis, or edema. No calf tenderness. Neuro: Cranial nerves 2 through 12 intact grossly. No focal neurological deficit. Speech is normal . Musculoskeletal: Point tenderness on the right chest wall from fall. No bruising or ecchymosis seen . Psych: Mood is okay. Affect is flat. Insight and judgment are fair. Skin: No rashes. Normal skin turgor. Laboratory Data: WBC 22.6, H and H 13.7 and 39.1, platelets 340, neutrophils 72%. INR 1.06. Sodium 129, potassium 4.2, chloride 96, CO2 of 22, BUN 46, creatinine 5.17, glucose 110, lactate 1.4, calci um 8.4, magnesium 2.2, total bilirubin 1.3, AST 24, ALT 32. CK level is 557. Troponin less than 0.0 2. BNP is 292. Albumin 3.7. UA is negative. Tox screen positive for amphetamine. Tylenol level i s 11.2 at 4:45 a.m. Imaging Studies: Head CT scan shows no acute intracranial finding. CT angio chest shows no pulmonar y embolus. No acute findings. Chest x-ray personally reviewed shows no acute intrathoracic process. EKG: Sinus tachycardia, rate of 110, inferior and anterior infarct, age undetermined, rate of 110. Assessment: A 48-year-old male with: 1.Acute syncopal episode, likely related to dehydration and hypotension. Blood pressure was 80s/60s . Initially, the patient is on methamphetamine. Patient has been counseled. We will continue with IV fluid resuscitation. Blood pressure is improved with initial bolus of 2 L. We will continue to m onitor. We will check orthostatic vital signs. 2.Methamphetamine abuse counseled. 3.Acute rhabdomyolysis secondary to above. 4.Acute kidney injury. Creatinine is 5.17. Patient does have electrolyte abnormalities, still lorna ng urine. Consult Nephrology. We will obtain renal ultrasound. No history of kidney disease in the past, likely related to prerenal azotemia versus acute tubular necrosis. 5.Hyponatremia. Continue with normal saline. We will monitor. 6.Rib pain. CT and x-ray did not show any fractures. Some mild tenderness to touch. We will provi de analgesia. 7.Schizoaffective disorder. Patient is on risperidone and Prozac, stable. 8.Hypothyroidism. We will check TSH level. Continue supplement. 9.Acute hypotension. We will hold lisinopril for now. Continue with IV fluid resuscitation, improv ing. 10.Chronic back pain, midline, without sciatica, stable. 11.Obesity, BMI 36. 12.History of chronic hepatitis C without coma. Plan: Admit the patient to Med-Surg, place as inpatient. Length of stay greater than 2 midnights. JORGE Voice ID: [id number]
[2018-11-18 05:23] LABS: Absolute Lymphocytes (CBC) 3.1 K/uL (0.7-4.9); Basophils % 0.8 % (0-1.3); Hematocrit 37.9 % (39.6-49.0); Lymphocytes % 24.1 % (15.3-44.8); MPV 7.8 fL (7.6-11.3); RBC Red Blood Cell Count 4.05 M/uL (4.33-5.43)
[2018-11-18] MEDS: RISPERIDONE 1 MG TABLET PO SCH (05:23)
[2018-11-18 05:53] LABS: Albumin 3.1 g/dL (3.4-5.0); Bilirubin Total 0.6 mg/dL (0.2-1.0); Magnesium 2.3 mg/dL (1.8-2.4); Phosphorus 3.7 mg/dL (2.5-4.9); Potassium 5.1 mmol/L (3.5-5.1); Protein, Total 7.4 g/dL (6.4-8.2); Thyroid Stimulating Hormone 1.84 uIU/mL (0.360-3.740); Uric Acid 4.5 mg/dL (3.5-7.2)
[2018-11-18] MEDS: NA CHLORIDE 0.9% 1,000 ML IV SCH ×4 (08:36→19:17)
[2018-11-18] MEDS: FLUOXETINE 20 MG CAP PO SCH (08:36)
[2018-11-18] MEDS: hydrOXYzine HCl 25 MG TAB PO SCH (08:37)
[2018-11-18] MEDS ORDERED: FLUOXETINE HCL 60 MG PO SCH (09:00)
[2018-11-18] MEDS ORDERED: LEVOTHYROXINE SOD 0.088 MG TAB PO SCH (09:00)
[2018-11-18 14:04] VITALS: BMI 35.8
--- NOTE | 2018-11-18 16:00 | PN ---
Date of Progress Note: 11/18/2018 Subjective: Patient seen and examined. Chart reviewed and case discussed with RN and Dr. Wells. Patient overall is doing better. No acute events overnight. Medications: List reviewed. Physical Examination: Vital Signs: Temperature 98, heart rate 80, blood pressure 97/50, respirations 16, O2 94% on room ai r. Orthostatic Vital Signs: Blood pressure lying down is 103/59, sitting up is 81/50, standing is 8 2/52 with a jump in the pulse from lying to sitting from 87 to 102. Positive orthostatic vital signs . General: Awake, alert, oriented x3, not in any acute distress. Obese male. CV: S1, S2. Regular rate and rhythm. Peripheral pulses present. Respiratory: Moving air well bilaterally. No wheezing or stridor. Gastrointestinal: Abdomen is soft, nontender, nondistended. Positive bowel sounds. No guarding or rigidity. Extremities: No clubbing, cyanosis, or edema. Neurologic: Cranial nerves 2 through 12 intact grossly. No focal neurological deficits. Speech is normal. Laboratory Data: Sodium 142, potassium 5.1, chloride 111, CO2 23, BUN 39, creatinine 2.7, glucose 96 , uric acid is 4.5, calcium 8.2, phosphorus 3.7, magnesium 2.3, albumin 3.1. TSH is 1.84. PTH is 64 .9, cortisol 4.41. WBC 12.9, H and H 13.1 and 37.9, platelets 311, neutrophils 63%. Hepatitis panel pending. Immunology panel also pending. Blood cultures, no growth to date. Renal ultrasound shows increased renal echotexture consistent with parenchymal disease. Assessment: A 48-year-old male with; 1.Acute syncopal episode, likely related to dehydration, hypotension. Patient's orthostatic vital s igns are positive. We will continue with IV fluids. Fall precautions. Continue PT evaluation. 2.Acute kidney injury. Creatinine was 5.17, improved down to 2.7. Patient does have some electroly te abnormalities. We will continue to monitor. Appreciate Nephrology input. Likely due to acute tu bular necrosis versus prerenal azotemia. 3.Acute rhabdomyolysis, atraumatic, secondary to above. We will recheck CPK level in a.m. 4.Methamphetamine abuse. Counseled. 5.Hyponatremia, corrected. 6.Rib pain, improving. No fracture seen on CT. 7.Schizoaffective disorder. Continue risperidone renally dosed and Prozac. 8.Hypothyroidism. TSH levels normal. Continue supplementation. 9.Acute hypotension. Lisinopril on hold. Continue with IV fluids. Patient is still orthostatic. 10.Chronic back pain, midline, without sciatica, stable. 11.Obesity, BMI 35.7. 12.History of chronic hepatitis C without coma, stable. 13.Deep vein thrombosis prophylaxis with SCDs. Plan: Continue IV fluids. Monitor kidney function and electrolytes. Likely discharge in the next 2 4 to 48 hours depending on clinical response. SA/MODL Voice ID: [id number] Report ID: [id number]
[2018-11-18 17:03] LABS: Rheumatoid Factor NEG (NEG)
[2018-11-18] MEDS: RISPERIDONE 0.25 MG TABLET PO SCH (20:17)
--- NOTE | 2018-11-19 03:01 | PN ---
Date of Progress Note: 11/18/2018 History: Patient was admitted with shortness of breath. Patient underwent CT chest with contrast. Creatinine on presentation 5.1. Creatinine continued to trend down. Patient feeling better. Physical Examination: Vital Signs: When I saw the patient, blood pressure 114/54, pulse of 80, afebrile. Patient had good urine output. Chest: Clear to auscultation. Heart: S1-S2 regular. Abdomen: Soft, nontender. Extremities: No edema. Laboratory Data: Sodium 142, potassium 4.1, bicarb 23, BUN 39, creatinine 2.7, GFR 26, calcium of 8. 2, uric acid 4.5, serum protein electrophoresis is still pending. PTH of 64. Cortisol of 4. PC rat io 0.5. Urine drug screen was positive for amphetamine. Assessment And Plan: 1.Acute kidney injury secondary to prerenal superimposed with contrast induced nephropathy, normal s ize kidney, proteinuric, nephrotic. I am going to go ahead and decrease IV fluid to 50. Hopefully i f tomorrow patient continues kidney function to improve, patient will be able to discontinue IV fluid and discharge. 2.Hypertension. Controlled optimal of blood pressure medication currently. 3.Shortness of breath, to follow up with primary. KRIS/NAGA Voice ID: [id number] Report ID: [id number]
[2018-11-19 04:46] LABS: Absolute Lymphocytes (CBC) 4.1 K/uL (0.7-4.9); Basophils % 1.2 % (0-1.3); Hematocrit 36.3 % (39.6-49.0); Lymphocytes % 39.5 % (15.3-44.8)
[2018-11-19 04:50] LABS: Albumin 2.9 g/dL (3.4-5.0); Bilirubin Total 0.4 mg/dL (0.2-1.0); Potassium 4.8 mmol/L (3.5-5.1)
[2018-11-19] MEDS: RISPERIDONE 1 MG TABLET PO SCH (05:27)
[2018-11-19] MEDS ORDERED: LEVOTHYROXINE SOD 0.088 MG TAB PO SCH (06:30)
[2018-11-19 09:28] VITALS: O2SAT 94
[2018-11-19] MEDS: NA CHLORIDE 0.9% 1,000 ML IV SCH (10:00)
[2018-11-19] MEDS: FLUOXETINE 20 MG CAP PO SCH (10:30)
[2018-11-19 17:16] VITALS: BP 119/74; TEMP 97
--- NOTE | 2018-11-20 03:19 | PN ---
Date of Progress Note: 11/19/2018 Subjective: Patient was admitted with acute kidney injury secondary to prerenal, superimposed with c ontrast-induced nephropathy. Kidney function has been improved significantly. Physical Examination: Vital Signs: Blood pressure 119/74, pulse of 64. Chest: Clear to auscultation. Heart: S1, S2. Regular. Abdomen: Soft, nontender. Extremities: No edema. Neurological: Oriented x3, nonfocal. Current Medications: Include Tylenol, fluoxetine, levothyroxine, risperidone, IV fluids. Laboratory Data: WBC 10.3, H and H of 12.6/36.3, platelets 300. Sodium 138, potassium 3.8, bicarb 2 5, BUN 31, creatinine 1.6, GFR of 44, calcium 8.3. Assessment And Plan: 1.Acute kidney injury secondary to prerenal, superimposed with contrast-induced nephropathy and SUSY inhibitor, recovering very well. Discontinue IV fluids. Patient is cleared from the renal standpoin t for discharge planning to follow up in the office in 2 weeks. 2.Hypertension. Keep holding SUSY inhibitor for the time being. We will follow up the patient as ou tpatient. 3.Colitis. Continue current antibiotic. Patient cleared from the renal standpoint for discharge bryson marrero. KRIS/NAGA Voice ID: [id number] Report ID: [id number]
--- NOTE | 2018-11-20 06:43 | DS ---
Date of Discharge: 11/19/2018 Consultants: Dr. Wells and Dr. Cardenas with nephrology. Admitting Diagnoses: 1.Syncopal episode, resolved. 2.Methamphetamine abuse. 3.Acute kidney injury. 4.Acute rhabdomyolysis. 5.Hyponatremia. 6.Rib pain. 7.Schizoaffective disorder. 8.Hypothyroidism. 9.Acute hypotension. 10.Chronic back pain, midline, without sciatica. 11.Obesity, BMI 36. 12.History of chronic hepatitis C without coma. Discharge Diagnoses: 1.Acute syncopal episode due to dehydration and orthostatic hypotension, improved. 2.Acute kidney injury, likely prerenal azotemia, resolving. 3.Acute rhabdomyolysis, atraumatic, improved. 4.Methamphetamine abuse, counseled. 5.Hyponatremia, corrected. 6.Rib pain, status post fall, improved. No fractures on CT. 7.Schizoaffective disorder, on risperidone. 8.Hypothyroidism, stable. 9.Acute hypotension, improved. Discontinue lisinopril. 10.Chronic back pain, midline, without sciatica, stable. 11.Obesity, BMI 35.7. 12.Chronic hepatitis C without coma, stable. Hospital Course: The patient is a 48-year-old male with past medical history of schizoaffective diso rder, hypothyroidism, hypertension, hepatitis C, comes in with syncopal episode. The patient does re port IV methamphetamine abuse. The patient sustained a fall, did not hit his head. He was out for f ew seconds, was helped up by bystanders. Did recall some rib pain. CT scan did not show any fractur es. The patient was found to have blood pressure of 81/63, was severely dehydrated, had rhabdomyolys is as well as acute kidney injury with a creatinine of 5.17. The patient was given IV fluid resuscit ation, which improved his kidney functions. Nephrology was consulted. Workup was completed. His wh ite blood cell count also normalized, likely acute phase reactant. His chest x-ray was clear. UA di d not show any infection either. The patient's electrolytes remained stable. He was able to ambulat e. His orthostatic vital signs were positive. He, however, improved with IV fluid resuscitation. H e was counseled to wait between changing positions, especially from lying to sitting and from sitting to standing. His lisinopril will be discontinued on discharge. He will need to follow up with neph rologist, Dr. Cardenas, in 2 weeks for repeat kidney function test and have blood pressure medication s adjusted and he needs to establish care with a primary care physician in 2 to 3 days. Diet: Renal. Activity: As tolerated. Medications: As per medication reconciliation list. Physical Examination: General: Awake, alert, and oriented x3, in no acute distress. Obese male. CV: S1, S2. Respiratory: Moving air well bilaterally. Abdomen: Soft, nontender, nondistended. Positive bowel sounds. Extremities: No clubbing, cyanosis, edema. Neurologic: Nonfocal. SA/MODL Voice ID: [id number] Report ID: [id number]
[2018-11-20 21:30] LABS: HBsAG Nonreactive (Nonreactive)
[2018-11-21 05:28] LABS: Albumin, (SPE) 3.2 g/dL (3.8-4.8); Alpha-1-Globulins 0.3 g/dL (0.2-0.3); Alpha-2-Globulins 0.8 g/dL (0.5-0.9); Gamma Globulins 1.6 g/dL (0.8-1.7); INTERPRETATION REPORT
[2018-11-22 16:14] LABS: HIV AG/AB 4TH GEN Non-reactive (Non-reactive)
[2018-11-23 09:43] LABS: Hep C Virus RNA (PCR)log ND
[2018-11-24 20:24] LABS: Hepatitis C Virus RNA (PCR)log 5.89 log IU/mL
== END 2018-11-19 18:46 | disposition home or self-care (01) | DRG 312 ==
LOC: ER 04:24 → ERHOLD 07:51 → 2ND 14:36
PROVIDERS: ADMIT Family Medicine; ATTEND Family Medicine
DX: I95.1 Orthostatic hypotension (principal); N17.9 Acute kidney failure, unspecified; M62.82 Rhabdomyolysis; E87.1 Hypo-osmolality and hyponatremia; E86.0 Dehydration; F15.10 Other stimulant abuse, uncomplicated; R07.81 Pleurodynia; F25.9 Schizoaffective disorder, unspecified; E03.9 Hypothyroidism, unspecified; M54.9 Dorsalgia, unspecified; E66.9 Obesity, unspecified; Z68.35 Body mass index [BMI] 35.0-35.9, adult; B18.2 Chronic viral hepatitis C; R79.89 Other specified abnormal findings of blood chemistry; N14.1 Nephropathy induced by other drugs, medicaments and biological substances; T50.8X5A Adverse effect of diagnostic agents, initial encounter; Y92.239 Unspecified place in hospital as the place of occurrence of the external cause; K52.9 Noninfective gastroenteritis and colitis, unspecified; I10 Essential (primary) hypertension
CPT/HCPCS: 36415; 70450; 71045; 71275; 76770; 80048; 80053; 80076; 80307; 80320; 80329; 81003; 81015; 82043; 82533; 82550; 82570; 83520; 83605; 83735; 83880; 83930; 83935; 83970; 84100; 84132; 84156; 84165; 84300; 84443; 84484; 84550; 85025; 85610; 86021; 86038; 86160; 86317; 86430; 86706; 86803; 87040; 87340; 87389; 87522; 93005; 94760; 96361; 96365; 97161; 99285; J2543; J7030; Q9967

== ENCOUNTER 2018-12-07 06:05 | Emergency (ER) | payer SELFPAY | END 2018-12-07 06:18 | disposition left against medical advice (07) | LOC: ER 06:05 | DX: Z53.21 Procedure and treatment not carried out due to patient leaving prior to being seen by health care provider (principal) ==

== ENCOUNTER 2019-02-17 01:37 | Emergency (ER) | payer SELFPAY ==
[2019-02-17 02:20] LABS: Hematocrit 44.7 % (39.6-49.0); MPV 8.4 fL (7.6-11.3); RBC Red Blood Cell Count 4.91 M/uL (4.33-5.43)
[2019-02-17 02:21] LABS: Bilirubin Direct 0.2 mg/dL (0-0.2); Potassium 3.6 mmol/L (3.5-5.1); Protein, Total 8.6 g/dL (6.4-8.2); Protime INR 1.06
[2019-02-17] MEDS ORDERED: LORazepam 2 MG/ML VIAL ONE ×2 (03:40→05:24)
[2019-02-17 03:55] LABS: Blood Morphology Comment NOT SEEN (NOT SEEN); Platelet Estimate ADEQ
[2019-02-17] MEDS ORDERED: NA CHLORIDE 0.9% 1,000 ML ONE ×2 (04:18→05:24)
[2019-02-17 04:37] LABS: Barbiturates NEGATIVE (NEGATIVE); Benzodiazepines NEGATIVE (NEGATIVE); Cocaine NEGATIVE (NEGATIVE); METHAMPHETAM POSITIVE (NEGATIVE); Methadone NEGATIVE (NEGATIVE); Opiates NEGATIVE (NEGATIVE); Phencyclidine NEGATIVE (NEGATIVE); THC Cannibis NEGATIVE (NEGATIVE)
[2019-02-17 04:56] LABS: Urine Blood TRACE (NEG); Urine Glucose NEGATIVE (NEG); Urine Protein 2+ (NEG); Urine Specific Gravity >1.030 (1.005-1.030); Urine pH 5.5 (5.0-7.0)
[2019-02-17] MEDS ORDERED: METOPROLOL TARTRATE 5 MG/5 ML INJ IV ONE (05:57)
[2019-02-17] MEDS ORDERED: cloNIDine HCL 0.1 MG TAB ONE (06:45)
--- NOTE | 2019-02-17 06:46 | EDPHYS ---
Physician Documentation [facility] Name: Mohan Lou Age: 48 yrs Sex: Male : 1970 Arrival Date: 02/17/2019 Time: 01:43 Bed 7 Private MD: ED Physician Krishna Lanza HPI: 02/17 04:22 This 48 yrs old Male presents to ER via EMS with complaints of Psych Problem. tw4 04:22 The patient presents to the emergency department with paranoia, psychosis, has tw4 experienced auditory hallucinations, has experienced visual hallucinations. Onset: The symptoms/episode began/occurred today. Past psychiatric history: Prior diagnosis: schizophrenia. Associated signs and symptoms: The patient has no apparent associated signs or symptoms. The patient has not experienced similar symptoms in the past. Historical: - Allergies: 01:56 No Known Allergies; ao - Home Meds: 01:56 Hydroxyzine Oral [Active]; Prozac Oral [Active]; risperidone Oral [Active]; Geodon oral ao oral [Active]; - PMHx: 01:56 Anxiety; Back pain; Borderline Diabetes; Depression; Hepatitis C; Hypertension; Schizo ao affective disorder; - PSHx: 01:56 None; ao - Immunization history:: Adult Immunizations unknown, Last tetanus immunization: unknown. - Social history:: Smoking status: Patient uses tobacco products, smokes one pack cigarettes per day. Patient uses alcohol, IV drugs, Meth. - Ebola Screening: : Patient negative for fever greater than or equal to 101.5 degrees Fahrenheit, and additional compatible Ebola Virus Disease symptoms Patient denies exposure to infectious person Patient denies travel to an Ebola-affected area in the 21 days before illness onset. ROS: 04:22 Psych: Positive for auditory hallucinations, visual hallucinations. tw4 Exam: 04:22 Constitutional: This is a well developed, well nourished patient who is awake, alert, tw4 and in no acute distress. Head/Face: Normocephalic, atraumatic. Chest/axilla: Normal chest wall appearance and motion. Nontender with no deformity. No lesions are appreciated. Cardiovascular: Regular rate and rhythm with a normal S1 and S2. No gallops, murmurs, or rubs. Normal PMI, no JVD. No pulse deficits. Respiratory: Lungs have equal breath sounds bilaterally, clear to auscultation and percussion. No rales, rhonchi or wheezes noted. No increased work of breathing, no retractions or nasal flaring. Abdomen/GI: Soft, non-tender, with normal bowel sounds. No distension or tympany. No guarding or rebound. No evidence of tenderness throughout. Back: No spinal tenderness. No costovertebral tenderness. Full range of motion. MS/ Extremity: Pulses equal, no cyanosis. Neurovascular intact. Full, normal range of motion. Neuro: Awake and alert, GCS 15, oriented to person, place, time, and situation. Cranial nerves II-XII grossly intact. Motor strength 5/5 in all extremities. Sensory grossly intact. Cerebellar exam normal. Normal gait. 04:22 Psych: Behavior/mood is uncooperative, depressed, Affect is flat, Oriented to person, place, time, Patient has no thoughts/intents to harm self or others. Judgement / Insight is normal. Vital Signs: 01:57 BP 160 / 118; Pulse 133; Resp 20; Temp 98.6(O); Pulse Ox 100% ; Weight 90.72 kg; Height ao 5 ft. 6 in. (167.64 cm); Pain 0/10; 03:00 BP 175 / 118; Pulse 140; Resp 20; Pulse Ox 99% on R/A; jb4 03:45 BP 151 / 121; Pulse 138; Resp 20; Pulse Ox 98% on R/A; jb4 04:30 BP 162 / 119; Pulse 126; Resp 18; Pulse Ox 99% on R/A; jb4 05:36 BP 171 / 122; Pulse 122; Resp 16; Pulse Ox 99% on R/A; ao 06:47 BP 162 / 116; Pulse 111; Resp 16; Pulse Ox 98% on R/A; jb4 07:07 BP 156 / 106; Pulse 113; Resp 16; Pulse Ox 98% on R/A; jb4 01:57 Body Mass Index 32.28 (90.72 kg, 167.64 cm) ao MDM: 01:55 Patient medically screened. 02/17 01:44 Order name: Acetaminophen; Complete Time: 04:13 tl1 02/17 04:13 Interpretation: Normal except: ACETA 2.0. 02/17 01:44 Order name: Basic Metabolic Panel; Complete Time: 04:13 tl1 02/17 04:13 Interpretation: Normal except: NA 135; GLUC 136; BUN 19; GFR 63. [facility] 02/17 01:44 Order name: CBC with Diff; Complete Time: 04:13 1 02/17 04:13 Interpretation: Normal except: WBC 20.0. [facility] 02/17 01:44 Order name: ETOH Level; Complete Time: 04:13 [facility] 02/17 04:14 Interpretation: Within normal limits: ETOH < 3. [facility] 02/17 01:44 Order name: Hepatic Function; Complete Time: 04:13 1 02/17 04:13 Interpretation: Normal except: AST 44; TP 8.6; GLOB 4.6; A/G 0.9. [facility] 02/17 01:44 Order name: PT-INR; Complete Time: 04:13 1 02/17 04:14 Interpretation: Within normal limits: PT 12.5. [facility] 02/17 01:44 Order name: Ptt, Activated; Complete Time: 04:13 [facility] 02/17 04:14 Interpretation: Normal except: PTT 40.6. [facility] 02/17 01:44 Order name: Salicylate; Complete Time: 04:13 1 02/17 04:14 Interpretation: Within normal limits: SHERRIE < 1.7. [facility] 02/17 01:44 Order name: Urine Drug Screen; Complete Time: 05:48 [facility] 02/17 05:48 Interpretation: Normal except: METHAMPHETAMINE POSITIVE. [facility] 02/17 02:31 Order name: Manual Differential; Complete Time: 04:13 EDMS 02/17 04:14 Interpretation: Within normal limits. [facility] 02/17 03:57 Order name: Urine Dipstick--Ancillary (enter results); Complete Time: 05:48 mt 02/17 01:44 Order name: EKG; Complete Time: 01:45 [facility] 02/17 01:44 Order name: EKG - Nurse/Tech; Complete Time: 02:56 tl 02/17 01:44 Order name: IV Saline Lock; Complete Time: 02:12 02/17 01:44 Order name: Labs collected and sent; Complete Time: 02:12 [facility] 02/17 01:44 Order name: Urine Dipstick-Ancillary (obtain specimen); Complete Time: 03:58 tl1 EC:22 Rate is 128 beats/min. Rhythm is regular, Sinus tachycardia. QRS Hostetter is Normal. VA tw4 interval is normal. QRS interval is normal. QT interval is normal. No Q waves. T waves are Normal in lead III. T waves are Inverted. No ST changes noted. Clinical impression: NSR w/ Non-specific ST/T Changes and Sinus tachycardia. Interpreted by me. Reviewed by me. Administered Medications: 03:55 Drug: Ativan 1 mg Route: IVP; Site: right antecubital; jb4 04:26 Follow up: Response: No adverse reaction; No change in condition jb4 04:22 Drug: NS 0.9% 1000 ml Route: IV; Rate: 1 bolus; Site: right antecubital; jb4 05:27 Follow up: Response: No adverse reaction; IV Status: Completed infusion; IV Intake: jb4 1000ml 05:27 Drug: Ativan 1 mg Route: IVP; Site: right antecubital; jb4 06:00 Follow up: Response: No adverse reaction; Anxiety decreased jb4 05:27 Drug: NS 0.9% 1000 ml Route: IV; Rate: 1 bolus; Site: right antecubital; jb4 06:39 Follow up: Response: No adverse reaction; IV Status: Completed infusion; IV Intake: jb4 1000ml 06:02 Drug: Lopressor 5 mg Route: IVP; Site: right antecubital; jb4 06:30 Follow up: Response: No adverse reaction; Blood pressure is lowered jb4 06:46 Drug: cloNIDine 0.2 mg Route: PO; jb4 07:05 Follow up: Response: No adverse reaction; Blood pressure is lowered 4 Disposition: 02/17/19 06:44 Discharged to Home. Impression: Schizophrenia, unspecified, Unspecified psychosis not due to a substance or known physiological condition, Hypertensive urgency. - Condition is Stable. - Discharge Instructions: Schizophrenia, Hypertension, [id number], Psychosis, Generalized Anxiety Disorder. - Medication Reconciliation Form, Thank You Letter, Antibiotic Education, Prescription Opioid Use form. - Follow up: Private Physician; When: Upon discharge from the Emergency Department; Reason: Recheck today's complaints, Continuance of care. - Problem is new. - Symptoms have improved. Signatures: Dispatcher [employer] EDMS Urvashi Grijalva RN RN tl1 Armani Hall RN RN ao Bryson, James, RN RN jb4 Krishna Lanza MD MD tw4 Corrections: (The following items were deleted from the chart) 07:09 06:44 02/17/2019 06:44 Discharged to Home. Impression: Schizophrenia, unspecified; jb4 Unspecified psychosis not due to a substance or known physiological condition; Hypertensive urgency. Condition is Stable. Forms are Medication Reconciliation Form, Thank You Letter, Antibiotic Education, Prescription Opioid Use. Follow up: Private Physician; When: Upon discharge from the Emergency Department; Reason: Recheck today's complaints, Continuance of care. Problem is new. Symptoms have improved. tw4
--- NOTE | 2019-02-17 06:46 | ER ---
Nurse's Notes [facility] Name: Mohan Lou Age: 48 yrs Sex: Male : 1970 Arrival Date: 02/17/2019 Time: 01:43 Bed 7 Private MD: Diagnosis: Schizophrenia, unspecified;Unspecified psychosis not due to a substance or known physiological condition;Hypertensive urgency Presentation: 02/17 01:44 Presenting complaint: EMS states: PD states that pt sister brought him because patient ao reports seing people and hearing voices. Pt reports alcohol and denies drugs to PD. Pt reports taking Meth the day before to the triage nurse. Pt denies suicidal ideations or homicidal ideation. Transition of care: patient was not received from another setting of care. Onset of symptoms is unknown. Risk Assessment: Do you want to hurt yourself or someone else? Patient reports no desire to harm self or others. Initial Sepsis Screen: Does the patient meet any 2 criteria? No. Patient's initial sepsis screen is negative. Does the patient have a suspected source of infection? No. Patient's initial sepsis screen is negative. Care prior to arrival: None. 01:44 Method Of Arrival: EMS: [facility] ao 01:44 Acuity: FEDE 2 ao Historical: - Allergies: 01:56 No Known Allergies; ao - Home Meds: 01:56 Hydroxyzine Oral [Active]; Prozac Oral [Active]; risperidone Oral [Active]; Geodon oral ao oral [Active]; - PMHx: 01:56 Anxiety; Back pain; Borderline Diabetes; Depression; Hepatitis C; Hypertension; Schizo ao affective disorder; - PSHx: 01:56 None; ao - Immunization history:: Adult Immunizations unknown, Last tetanus immunization: unknown. - Social history:: Smoking status: Patient uses tobacco products, smokes one pack cigarettes per day. Patient uses alcohol, IV drugs, Meth. - Ebola Screening: : Patient negative for fever greater than or equal to 101.5 degrees Fahrenheit, and additional compatible Ebola Virus Disease symptoms Patient denies exposure to infectious person Patient denies travel to an Ebola-affected area in the 21 days before illness onset. Screenin:01 Abuse screen: Denies threats or abuse. Denies injuries from another. Nutritional ao screening: No deficits noted. Tuberculosis screening: No symptoms or risk factors identified. Fall Risk None identified. Assessment: 01:59 General: Appears in no apparent distress. comfortable, Behavior is calm, cooperative, ao appropriate for age, Reports auditory and vision hallucination. Pain: Denies pain. Neuro: Level of Consciousness is awake, alert, Oriented to person, place, Correction Worker are equal bilaterally Moves all extremities. Full function Speech is normal. Cardiovascular: Capillary refill < 3 seconds Patient's skin is warm and dry. Respiratory: Airway is patent Respiratory effort is even, unlabored, Respiratory pattern is regular, symmetrical. GI: Abdomen is round obese. : No signs and/or symptoms were reported regarding the genitourinary system. EENT: No signs and/or symptoms were reported regarding the EENT system. Derm: Skin is intact, Skin temperature is warm. Musculoskeletal: Circulation, motion, and sensation intact. Range of motion: intact in all extremities. 03:00 Reassessment: Patient appears in no apparent distress at this time. Patient and/or jb4 family updated on plan of care and expected duration. Pain level reassessed. Patient is alert, oriented x 3, equal unlabored respirations, skin warm/dry/pink. 04:00 Reassessment: Patient appears in no apparent distress at this time. Patient and/or jb4 family updated on plan of care and expected duration. Pain level reassessed. Patient is alert, oriented x 3, equal unlabored respirations, skin warm/dry/pink. Continues to report having auditory and visual hallucinations. 04:41 Reassessment: Patient appears in no apparent distress at this time. No changes from jb4 previously documented assessment. Patient and/or family updated on plan of care and expected duration. Pain level reassessed. Patient is alert, oriented x 3, equal unlabored respirations, skin warm/dry/pink. 05:36 Reassessment: Patient appears in no apparent distress at this time. Patient and/or ao family updated on plan of care and expected duration. Pain level reassessed. 06:56 Reassessment: Patient appears in no apparent distress at this time. Patient and/or jb4 family updated on plan of care and expected duration. Pain level reassessed. Patient is alert, oriented x 3, equal unlabored respirations, skin warm/dry/pink. D/c pending further monitoring due to administration of b/p medication. 07:07 Reassessment: Patient appears in no apparent distress at this time. Patient and/or jb4 family updated on plan of care and expected duration. Pain level reassessed. Patient is alert, oriented x 3, equal unlabored respirations, skin warm/dry/pink. PT verbalized understanding of d/c and follow up instructions. Ambulated out of ED with steady gait. Vital Signs: 01:57 BP 160 / 118; Pulse 133; Resp 20; Temp 98.6(O); Pulse Ox 100% ; Weight 90.72 kg; Height ao 5 ft. 6 in. (167.64 cm); Pain 0/10; 03:00 BP 175 / 118; Pulse 140; Resp 20; Pulse Ox 99% on R/A; jb4 03:45 BP 151 / 121; Pulse 138; Resp 20; Pulse Ox 98% on R/A; jb4 04:30 BP 162 / 119; Pulse 126; Resp 18; Pulse Ox 99% on R/A; jb4 05:36 BP 171 / 122; Pulse 122; Resp 16; Pulse Ox 99% on R/A; ao 06:47 BP 162 / 116; Pulse 111; Resp 16; Pulse Ox 98% on R/A; jb4 07:07 BP 156 / 106; Pulse 113; Resp 16; Pulse Ox 98% on R/A; jb4 01:57 Body Mass Index 32.28 (90.72 kg, 167.64 cm) ao ED Course: 01:43 Patient arrived in ED. ao 01:46 Krishna Lanza MD is Attending Physician. tw4 01:50 Inserted saline lock: 20 gauge antecubital area, using aseptic technique. Blood ao collected. 01:55 Triage completed. ao 01:58 Arm band placed on right wrist. Patient placed in an exam room, on a stretcher, on ao pulse oximetry, Patient notified of wait time Patient's private physician notified. 02:01 Armani Hall, RN is Primary Nurse. ao 02:01 Patient has correct armband on for positive identification. radiation monitor on. Pulse ao ox on. NIBP on. 02:56 EKG done, by ED staff, reviewed by Krishna Lanza MD. ds4 07:07 No provider procedures requiring assistance completed. IV discontinued, intact, jb4 bleeding controlled, No redness/swelling at site. Pressure dressing applied. Administered Medications: 03:55 Drug: Ativan 1 mg Route: IVP; Site: right antecubital; jb4 04:26 Follow up: Response: No adverse reaction; No change in condition jb4 04:22 Drug: NS 0.9% 1000 ml Route: IV; Rate: 1 bolus; Site: right antecubital; jb4 05:27 Follow up: Response: No adverse reaction; IV Status: Completed infusion; IV Intake: jb4 1000ml 05:27 Drug: Ativan 1 mg Route: IVP; Site: right antecubital; jb4 06:00 Follow up: Response: No adverse reaction; Anxiety decreased jb4 05:27 Drug: NS 0.9% 1000 ml Route: IV; Rate: 1 bolus; Site: right antecubital; jb4 06:39 Follow up: Response: No adverse reaction; IV Status: Completed infusion; IV Intake: jb4 1000ml 06:02 Drug: Lopressor 5 mg Route: IVP; Site: right antecubital; jb4 06:30 Follow up: Response: No adverse reaction; Blood pressure is lowered jb4 06:46 Drug: cloNIDine 0.2 mg Route: PO; jb4 07:05 Follow up: Response: No adverse reaction; Blood pressure is lowered jb4 Intake: 05:27 IV: 1000ml; Total: 1000ml. jb4 06:39 IV: 1000ml; Total: 2000ml. jb4 Outcome: 06:44 Discharge ordered by . tw4 07:07 Discharged to home ambulatory. jb4 07:07 Condition: stable 07:07 Discharge instructions given to patient, Instructed on discharge instructions, follow up and referral plans. The need to quit using meth. Demonstrated understanding of instructions, follow-up care. 07:09 Patient left the ED. jb4 Signatures: Manuel Pereyra ds4 Armani Hall RN Andrea Pineda RN RN jb4 Krishna Lanza MD MD tw4
[2019-02-17 07:14] VITALS: TEMP 98.6
[2019-02-17 07:21] VITALS: O2SAT 98
[2019-02-17 07:22] VITALS: BP 156/106
--- NOTE | 2019-02-17 07:48 | EKG ---
Test Date: 2019-02-17 Test Time: 02:51:32 Supervisor Dock: LINDSEY MEASUREMENT RESULTS: Intervals: Rate: 128 WV: 148 QRSD: 76 QT: 304 QTc: 443 [place]: P: 34 WV: 148 QRS: -14 T: 12 INTERPRETIVE STATEMENTS: Sinus tachycardia Inferior infarct, age undetermined Anteroseptal infarct, age undetermined Abnormal ECG Compared to ECG 11/17/2018 04:41:58 No significant changes Electronically Signed On 02-17-19 07:47:35 CHIEF OF PEDIATRIC UROLOGY by Raymond Corey
== END 2019-02-17 07:09 | disposition home or self-care (01) ==
LOC: ER 01:37
DX: F20.9 Schizophrenia, unspecified (principal); F29 Unspecified psychosis not due to a substance or known physiological condition; I16.0 Hypertensive urgency; F17.210 Nicotine dependence, cigarettes, uncomplicated
CPT/HCPCS: 36415; 80048; 80076; 80307; 80320; 80329; 81003; 85025; 85610; 85730; 93005; 96361; 96374; 96375; 99284; J7030

== ENCOUNTER 2019-02-22 17:54 | Emergency (ER) | payer SELFPAY ==
--- OUTSIDE RECORDS SUMMARY | 2019-02-22 17:57 | XMS REPORT ---
:1970 [facility] [address] [place]man [address] [place] [id number] Care Team Providers Name Role Phone UNKNOWN, REFFERING Primary Care Provider Unavailable CARLY BIRCH M.D. Unavailable Unavailable Problems This patient has no known problems. Allergies, Adverse Reactions, Alerts This patient has no known allergies or adverse reactions. Medications This patient has no known medications. Results Test Description Test Time Test Comments Text Results Atomic Results Result Comments Blood Culture 2019-01-31 18:02:44 No growth at 5 days. RPR Qualitative 2019-01-29 15:04:21 Test Item Value Reference Range Comments RPR Qual (test code=RPR Qual) Non-Reactive Non-Reactive Reactive Control (test code=Reactive Control) Reactive Weak Reactive Control (test code=Weak Reactive Control) Weak Reactive Non-Reactive Control (test code=Non-Reactive Control) Non-Reactive Lot # (test code=Lot #) [id number] Expiration Dt (test code=Expiration Dt) 10.31.20 Thyroid Stimulating [id number] 07:48:52 Test Item Value Reference Range Comments TSH (test code=TSH) 2.750 mIU/mL 0.270-4.200 Lipid [id number] 07:41:03 Test Item Value Reference Range Comments Cholesterol Total (test 148 mg/dL 0-200 RISK OF HEART DISEASEPublished code=Cholesterol Total) by Citizen Of [place] Heart Association Analyte Optimal Borderline Increased RiskCHOL <200 200-239 >240TRIG <150 150-199 >200HDL Male >60 <40HDL Female >60 <50LDL <100 130-159 >160LDL Near optimal is 100-129 Triglycerides (test 82 mg/dL 9-200 code=Triglycerides) HDL (test code=HDL) 30 mg/dL 40-60 LDL (test code=LDL) 102 mg/dL 0-130 The equation being used in this calculation is LDL=(Chol - HDL) - (Trig / 5) VLDL (test code=VLDL) 16 mg/dL 5-40 The equation being used in this calculation is VLDL=Trig / 5 Chol/HDL (test 4.9 ratio 0.0-5.0 code=Chol/HDL) LDL/HDL Ratio (test 3 The equation being used in this code=LDL/HDL Ratio) calculation is LDL/HDL Ratio=LDL Calc/HDL Chol IG [id number] 07:18:13 Test Item Value Reference Range Comments IG (test code=IG) 0.5 % 0.0-5.0 IG Abs (test code=IG Abs) 0 x10 Complete Blood Count with [id number] 07:18:12 Test Item Value Reference Range Comments WBC (test code=WBC) 12.7 x10 4.4-10.5 RBC (test code=RBC) 4.54 x10 4.10-5.70 Hgb (test code=Hgb) 14.3 g/dL 13.4-17.4 MCV (test code=MCV) 93.40 fL 80.00-100.00 Hct (test code=Hct) 42.4 % 38.7-52.0 MCHC (test code=MCHC) 33.70 g/dL 32.00-37.50 RDW CV (test code=RDW CV) 13.6 % 11.5-14.5 MCH (test code=MCH) 31.5 pg 27.0-32.5 Platelets (test 371.0 x10 140.0-440.0 Results called to and read code=Platelets) back by: Ruben Castellanos RN 01/27/2019 07:17:29 CSTno info givenDD MPV (test code=MPV) 9.8 fL Slide Review (test code=Slide Auto Auto Result created by Review) GL_SJM_SLIDE_REV_AUTO nRBC (test code=nRBC) 0 NRBC Abs (test code=NRBC Abs) 0.00 x10 IPF (test code=IPF) 0 % Automated [id number] 07:18:12 Test Item Value Reference Range Comments Neutro Auto (test code=Neutro Auto) 56.1 % 36.0-70.0 Lymph Auto (test code=Lymph Auto) 30.1 % 12.0-44.0 [place] Auto (test code=[place] Auto) 10.0 % 0.0-11.0 Eos, Auto (test code=Eos, Auto) 2.8 % 0.0-7.0 Basophil Auto (test code=Basophil Auto) 0.5 % 0.0-2.0 Neutro Absolute (test code=Neutro Absolute) 7.1 x10 1.6-7.4 Lymph Absolute (test code=Lymph Absolute) 3.81 x10 .50-4.60 [place] Absolute (test code=[place] Absolute) 1.26 x10 .00-1.20 Eos Absolute (test code=Eos Absolute) 0.36 x10 0.00-0.74 Baso Absolute (test code=Baso Absolute) 0.06 x10 0.00-0.21 Basic Metabolic [id number] 06:56:18 Test Item Value Reference Range Comments Sodium Level (test code=Sodium Level) 139.0 mmol/L 135.0-145.0 Potassium Level (test code=Potassium Level) 5.0 mmol/L 3.5-5.1 Chloride Level (test code=Chloride Level) 106 mmol/L 98-105 CO2 (test code=CO2) 23 mmol/L 22-29 Anion Gap (test code=Anion Gap) 10 mmol/L 7-16 BUN (test code=BUN) 14.40 mg/dL 6.00-20.00 Creatinine Level (test code=Creatinine Level) 1.20 mg/dL 0.70-1.20 BUN/Creat Ratio (test code=BUN/Creat Ratio) 12 Glucose Level (test code=Glucose Level) 90 mg/dL 70-115 Calcium Level (test code=Calcium Level) 8.8 mg/dL 8.3-10.5 Basic Metabolic [id number] 06:56:18 Test Item Value Reference Range Comments Sodium Level (test 139.0 mmol/L 135.0-145.0 code=Sodium Level) Potassium Level (test 5.0 mmol/L 3.5-5.1 code=Potassium Level) Chloride Level (test 106 mmol/L 98-105 code=Chloride Level) CO2 (test code=CO2) 23 mmol/L 22-29 Anion Gap (test 10 mmol/L 7-16 code=Anion Gap) BUN (test code=BUN) 14.40 mg/dL 6.00-20.00 Creatinine Level (test 1.20 mg/dL 0.70-1.20 code=Creatinine Level) BUN/Creat Ratio (test 12 code=BUN/Creat Ratio) Glucose Level (test 90 mg/dL 70-115 code=Glucose Level) Calcium Level (test 8.8 mg/dL 8.3-10.5 code=Calcium Level) eGFR AA (test code=eGFR >60 mL/min/1.73 m2 [...] is not provided, and the patient is -Citizen Of [place], multiply by 1.212. If sex is not [...] recommended by the National Kidney Foundation, http://nkdep.nih.gov Basic Metabolic [id number] 06:56:18 Test Item Value Reference Range Comments Sodium Level (test 139.0 mmol/L 135.0-145.0 code=Sodium Level) Potassium Level (test 5.0 mmol/L 3.5-5.1 code=Potassium Level) Chloride Level (test 106 mmol/L 98-105 code=Chloride Level) CO2 (test code=CO2) 23 mmol/L 22-29 Anion Gap (test 10 mmol/L 7-16 code=Anion Gap) BUN (test code=BUN) 14.40 mg/dL 6.00-20.00 Creatinine Level (test 1.20 mg/dL 0.70-1.20 code=Creatinine Level) BUN/Creat Ratio (test 12 code=BUN/Creat Ratio) Glucose Level (test 90 mg/dL 70-115 code=Glucose Level) Calcium Level (test 8.8 mg/dL 8.3-10.5 code=Calcium Level) eGFR AA (test code=eGFR >60 mL/min/1.73 m2 [...] is not provided, and the patient is -Citizen Of [place], multiply by 1.212. If sex is not [...] National Kidney Foundation, http://nkdep.nih.gov eGFR Non-AA (test >60.00 mL/min/1.73 eGFR (estimated code=eGFR Non-AA) m2 Glomerular [...] is not provided, and the patient is -Citizen Of [place], multiply by 1.212. If sex is not [...] recommended by the National Kidney Foundation, http://nkdep.nih.gov Blood [id number] 18:03:02No growth at 5 days.Lactic Acid, Plasma (Venous) 2019-01-26 17:05:40 Test Item Value Reference Range Comments Lactic Acid, Plasma (Venous) (test code=Lactic 1.2 mmol/L 0.5-1.9 Acid, Plasma (Venous)) Alcohol [id number] 15:16:25 Test Item Value Reference Range Comments Ethanol Level (test <0.00 g/dL 0.00-0.01 Intoxicated 0.080 g/dL or more code=Ethanol Level) Ethanol Inst (test <0 code=Ethanol Inst) XR Chest 1 View [id number] 15:05:47Patient: RANJIT MORALES Date/Time01/26/2019 14:46 CSTReason for ExamCoughReportDictation location R16:Portable chest one view.HISTORY: CoughCOMMENT: No comparison. The heart is normal in size. The trachea is midline. There is abnormal consolidation in the left lower lobe laterally with probable small left effusion. No pneumothorax is seen.Visualized soft tissues and skeletal structures are unremarkable.IMPRESSION: Findings concerning for left lower lobe pneumonia with small left effusion. Final Dictated by: MD Andrade Phebe CDictated DT/TM: 01/26/2019 3:04 pmSigned by : MD Andrade Phebe CSigned (Electronic Signature): 01/26/2019 3:05 [id number] 15:05:41 Test Item Value Reference Range Comments RBC Morph (test code=RBC Morph) Normal Normal Platelet Morphology (test code=Platelet Platelet Clumping Normal Morphology) Anisocyte (test code=Anisocyte) None None Hypochromia (test code=Hypochromia) None Seen None Seen Microcyte (test code=Microcyte) None Seen None Seen Macrocyte (test code=Macrocyte) None Seen None Seen Poik (test code=Poik) None Seen None Seen Polychrom (test code=Polychrom) None Seen None Seen Acanthocyte (test code=Acanthocyte) None Seen None Seen Baso Stippling RBC (test code=Baso None Seen None Seen Stippling RBC) Plt Estimation (test code=Plt Estimation) Normal Normal Comprehensive Metabolic [id number] 14:41:03 Test Item Value Reference Range Comments Sodium Level (test code=Sodium 137.0 mmol/L 135.0-145.0 Level) Potassium Level (test 4.2 mmol/L 3.5-5.1 code=Potassium Level) Chloride Level (test 104 mmol/L 98-105 code=Chloride Level) CO2 (test code=CO2) 18 mmol/L 22-29 Anion Gap (test code=Anion Gap) 15 mmol/L 7-16 BUN (test code=BUN) 14.70 mg/dL 6.00-20.00 Creatinine Level (test 1.10 mg/dL 0.70-1.20 code=Creatinine Level) BUN/Creat Ratio (test 13 code=BUN/Creat Ratio) Glucose Level (test code=Glucose 113 mg/dL 70-115 Level) Calcium Level (test code=Calcium 9.2 mg/dL 8.3-10.5 Level) Alk Phos (test code=Alk Phos) 71 U/L 40-129 Bilirubin Total (test 0.8 mg/dL 0.1-0.9 code=Bilirubin Total) Albumin Level (test code=Albumin 3.9 g/dL 3.5-5.2 Level) Protein Total (test code=Protein 7.8 g/dL 6.4-8.3 Total) ALT (test code=ALT) 24 U/L 1-41 AST (test code=AST) see note U/L 1-40 Specimen hemolyzed. 37 Globulin (test code=Globulin) 3.9 g/dL 2.9-3.1 A/G Ratio (test code=A/G Ratio) 1.0 ratio Comprehensive Metabolic [id number] 14:41:03 Test Item Value Reference Range Comments Sodium Level (test 137.0 mmol/L 135.0-145.0 code=Sodium Level) Potassium Level (test 4.2 mmol/L 3.5-5.1 code=Potassium Level) Chloride Level (test 104 mmol/L 98-105 code=Chloride Level) CO2 (test code=CO2) 18 mmol/L 22-29 Anion Gap (test 15 mmol/L 7-16 code=Anion Gap) BUN (test code=BUN) 14.70 mg/dL 6.00-20.00 Creatinine Level (test 1.10 mg/dL 0.70-1.20 code=Creatinine Level) BUN/Creat Ratio (test 13 code=BUN/Creat Ratio) Glucose Level (test 113 mg/dL 70-115 code=Glucose Level) Calcium Level (test 9.2 mg/dL 8.3-10.5 code=Calcium Level) Alk Phos (test code=Alk 71 U/L 40-129 Phos) Bilirubin Total (test 0.8 mg/dL 0.1-0.9 code=Bilirubin Total) Albumin Level (test 3.9 g/dL 3.5-5.2 code=Albumin Level) Protein Total (test 7.8 g/dL 6.4-8.3 code=Protein Total) ALT (test code=ALT) 24 U/L 1-41 AST (test code=AST) see note U/L 1-40 Specimen hemolyzed. 37 Globulin (test 3.9 g/dL 2.9-3.1 code=Globulin) A/G Ratio (test code=A/G 1.0 ratio Ratio) eGFR AA (test code=eGFR >60 [...] is not provided, and the patient is -Citizen Of [place], multiply by 1.212. If sex is not [...] the National Kidney Foundation, http://nkdep.nih.gov Comprehensive Metabolic [id number] 14:41:03 Test Item Value Reference Range Comments Sodium Level (test 137.0 mmol/L 135.0-145.0 code=Sodium Level) Potassium Level (test 4.2 mmol/L 3.5-5.1 code=Potassium Level) Chloride Level (test 104 mmol/L 98-105 code=Chloride Level) CO2 (test code=CO2) 18 mmol/L 22-29 Anion Gap (test 15 mmol/L 7-16 code=Anion Gap) BUN (test code=BUN) 14.70 mg/dL 6.00-20.00 Creatinine Level (test 1.10 mg/dL 0.70-1.20 code=Creatinine Level) BUN/Creat Ratio (test 13 code=BUN/Creat Ratio) Glucose Level (test 113 mg/dL 70-115 code=Glucose Level) Calcium Level (test 9.2 mg/dL 8.3-10.5 code=Calcium Level) Alk Phos (test code=Alk 71 U/L 40-129 Phos) Bilirubin Total (test 0.8 mg/dL 0.1-0.9 code=Bilirubin Total) Albumin Level (test 3.9 g/dL 3.5-5.2 code=Albumin Level) Protein Total (test 7.8 g/dL 6.4-8.3 code=Protein Total) ALT (test code=ALT) 24 U/L 1-41 AST (test code=AST) see note U/L 1-40 Specimen hemolyzed. 37 Globulin (test 3.9 g/dL 2.9-3.1 code=Globulin) A/G Ratio (test code=A/G 1.0 ratio Ratio) eGFR AA (test code=eGFR >60 [...] is not provided, and the patient is -Citizen Of [place], multiply by 1.212. If sex is not [...] National Kidney Foundation, http://nkdep.nih.gov eGFR Non-AA (test >60.00 mL/min/1.73 eGFR (estimated code=eGFR Non-AA) m2 Glomerular [...] is not provided, and the patient is -Citizen Of [place], multiply by 1.212. If sex is not [...] recommended by the National Kidney Foundation, http://nkdep.nih.gov Urine Drug [id number] 14:35:43 Test Item Value Reference Range Comments Amphetamine Screen Ur (test POSITIVE Negative code=Amphetamine Screen Ur) Barbiturate Screen Ur (test Negative Negative code=Barbiturate Screen Ur) Benzodiazepines Ur (test Negative Negative code=Benzodiazepines Ur) Cocaine Screen Ur (test POSITIVE Negative code=Cocaine Screen Ur) U Methadone Scr (test code=U Negative Negative Methadone Scr) Opiate Screen Ur (test Negative Negative code=Opiate Screen Ur) U PCP Scrn (test code=U PCP Negative Negative Scrn) Cannabinoid Screen Ur (test Negative Negative code=Cannabinoid Screen Ur) U TCA (test code=U TCA) Negative Negative The results of all drug screen tests are only preliminary. Clinical consideration and professional judgment should be applied to any drug of abuse test result, particularly when preliminary positive results are obtained. Please order a separate confirmatory test if desired. Complete Blood Count with [id number] 14:29:19 Test Item Value Reference Range Comments WBC (test code=WBC) 19.8 x10 4.4-10.5 RBC (test code=RBC) 4.98 x10 4.10-5.70 Hgb (test code=Hgb) 15.9 g/dL 13.4-17.4 MCV (test code=MCV) 91.80 fL 80.00-100.00 Hct (test code=Hct) 45.7 % 38.7-52.0 MCHC (test code=MCHC) 34.80 g/dL 32.00-37.50 MCH (test code=MCH) 31.9 pg 27.0-32.5 RDW CV (test code=RDW CV) 13.3 % 11.5-14.5 Platelets (test 214.0 x10 140.0-440.0 code=Platelets) MPV (test code=MPV) 10.8 fL Slide Review (test code=Slide Smear Auto Result created by Review) GL_SJM_SLIDE_REV_AUTO GL_SJM_XN_RFLX GL_SJM_XN_RFLX nRBC (test code=nRBC) 0 NRBC Abs (test code=NRBC Abs) 0.00 x10 Pos Diff XN (test code=Pos A Diff XN) Pos Count XN (test code=Pos A Count XN) IPF (test code=IPF) 3 % Automated [id number] 14:29:19 Test Item Value Reference Range Comments Neutro Auto (test code=Neutro Auto) 68.5 % 36.0-70.0 Lymph Auto (test code=Lymph Auto) 19.8 % 12.0-44.0 [place] Auto (test code=Kingman Auto) 9.9 % 0.0-11.0 Eos, Auto (test code=Eos, Auto) 0.6 % 0.0-7.0 Basophil Auto (test code=Basophil Auto) 0.5 % 0.0-2.0 Neutro Absolute (test code=Neutro Absolute) 13.6 x10 1.6-7.4 Lymph Absolute (test code=Lymph Absolute) 3.92 x10 .50-4.60 [place] Absolute (test code=[place] Absolute) 1.97 x10 .00-1.20 Eos Absolute (test code=Eos Absolute) 0.12 x10 0.00-0.74 Baso Absolute (test code=Baso Absolute) 0.09 x10 0.00-0.21 IG [id number] 14:29:19 Test Item Value Reference Range Comments IG (test code=IG) 0.7 % 0.0-5.0 IG Abs (test code=IG Abs) 0 x10 Thyroxine Free [id number] 08:55:53 Test Item Value Reference Range Comments T4 Free (test code=T4 Free) 1.080 ng/dL 0.930-1.700 Urine [id number] 08:38:58 C Urine Added by GL_SJM_UA_CUL_INDNo growth at 24 hours. No growth at 48 hours.Complete Blood Count with [id number] 08:06:26 Test Item Value Reference Range Comments WBC (test code=WBC) 10.5 x10 4.4-10.5 RBC (test code=RBC) 4.72 x10 4.10-5.70 Hgb (test code=Hgb) 14.8 g/dL 13.4-17.4 MCV (test code=MCV) 93.20 fL 80.00-100.00 Hct (test code=Hct) 44.0 % 38.7-52.0 MCHC (test code=MCHC) 33.60 g/dL 32.00-37.50 RDW CV (test code=RDW CV) 13.2 % 11.5-14.5 MCH (test code=MCH) 31.4 pg 27.0-32.5 Platelets (test 366.0 x10 140.0-440.0 code=Platelets) MPV (test code=MPV) 9.5 fL Slide Review (test code=Slide Auto Auto Result created by Review) GL_SJM_SLIDE_REV_AUTO nRBC (test code=nRBC) 0 NRBC Abs (test code=NRBC Abs) 0.00 x10 IPF (test code=IPF) 0 % Automated [id number] 08:06:26 Test Item Value Reference Range Comments Neutro Auto (test code=Neutro Auto) 49.8 % 36.0-70.0 Lymph Auto (test code=Lymph Auto) 37.0 % 12.0-44.0 [place] Auto (test code=Kingman Auto) 8.7 % 0.0-11.0 Eos, Auto (test code=Eos, Auto) 3.4 % 0.0-7.0 Basophil Auto (test code=Basophil Auto) 0.7 % 0.0-2.0 Neutro Absolute (test code=Neutro Absolute) 5.2 x10 1.6-7.4 Lymph Absolute (test code=Lymph Absolute) 3.87 x10 .50-4.60 [place] Absolute (test code=[place] Absolute) .91 x10 .00-1.20 Eos Absolute (test code=Eos Absolute) 0.36 x10 0.00-0.74 Baso Absolute (test code=Baso Absolute) 0.07 x10 0.00-0.21 IG [id number] 08:06:26 Test Item Value Reference Range Comments IG (test code=IG) 0.4 % 0.0-5.0 IG Abs (test code=IG Abs) 0 x10 RPR [id number] 11:27:50 Test Item Value Reference Range Comments RPR Qual (test code=RPR Qual) Non-Reactive Non-Reactive Reactive Control (test code=Reactive Control) Reactive Weak Reactive Control (test code=Weak Reactive Weak Reactive Control) Non-Reactive Control (test code=Non-Reactive Non-Reactive Control) Lot # (test code=Lot #) [id number] Expiration Dt (test code=Expiration Dt) 01-01-2020 Thyroid Stimulating [id number] 08:30:25 Test Item Value Reference Range Comments TSH (test code=TSH) 4.340 mIU/mL 0.270-4.200 Lipid [id number] 08:12:15 Test Item Value Reference Range Comments Cholesterol Total (test 173 mg/dL 0-200 RISK OF HEART DISEASEPublished code=Cholesterol Total) by Citizen Of [place] Heart Association Analyte Optimal Borderline Increased RiskCHOL <200 200-239 >240TRIG <150 150-199 >200HDL Male >60 <40HDL Female >60 <50LDL <100 130-159 >160LDL Near optimal is 100-129 Triglycerides (test 144 mg/dL 9-200 code=Triglycerides) HDL (test code=HDL) 28 mg/dL 40-60 LDL (test code=LDL) 116 mg/dL 0-130 The equation being used in this calculation is LDL=(Chol - HDL) - (Trig / 5) VLDL (test code=VLDL) 29 mg/dL 5-40 The equation being used in this calculation is VLDL=Trig / 5 Chol/HDL (test 6.2 ratio 0.0-5.0 code=Chol/HDL) LDL/HDL Ratio (test 4 The equation being used in this code=LDL/HDL Ratio) calculation is LDL/HDL Ratio=LDL Calc/HDL Chol Comprehensive Metabolic [id number] 01:13:20 Test Item Value Reference Range Comments Sodium Level (test code=Sodium Level) 135.0 mmol/L 135.0-145.0 Potassium Level (test code=Potassium Level) 3.6 mmol/L 3.5-5.1 Chloride Level (test code=Chloride Level) 100 mmol/L 98-105 CO2 (test code=CO2) 21 mmol/L 22-29 Anion Gap (test code=Anion Gap) 14 mmol/L 7-16 BUN (test code=BUN) 14.50 mg/dL 6.00-20.00 Creatinine Level (test code=Creatinine Level) 1.30 mg/dL 0.70-1.20 BUN/Creat Ratio (test code=BUN/Creat Ratio) 11 Glucose Level (test code=Glucose Level) 111 mg/dL 70-115 Calcium Level (test code=Calcium Level) 9.6 mg/dL 8.3-10.5 Alk Phos (test code=Alk Phos) 77 U/L 40-129 Bilirubin Total (test code=Bilirubin Total) 1.1 mg/dL 0.1-0.9 Albumin Level (test code=Albumin Level) 4.3 g/dL 3.5-5.2 Protein Total (test code=Protein Total) 8.1 g/dL 6.4-8.3 ALT (test code=ALT) 24 U/L 1-41 AST (test code=AST) 33 U/L 1-40 Globulin (test code=Globulin) 3.8 g/dL 2.9-3.1 A/G Ratio (test code=A/G Ratio) 1.1 ratio Comprehensive Metabolic [id number] 01:13:20 Test Item Value Reference Range Comments Sodium Level (test 135.0 mmol/L 135.0-145.0 code=Sodium Level) Potassium Level (test 3.6 mmol/L 3.5-5.1 code=Potassium Level) Chloride Level (test 100 mmol/L 98-105 code=Chloride Level) CO2 (test code=CO2) 21 mmol/L 22-29 Anion Gap (test 14 mmol/L 7-16 code=Anion Gap) BUN (test code=BUN) 14.50 mg/dL 6.00-20.00 Creatinine Level (test 1.30 mg/dL 0.70-1.20 code=Creatinine Level) BUN/Creat Ratio (test 11 code=BUN/Creat Ratio) Glucose Level (test 111 mg/dL 70-115 code=Glucose Level) Calcium Level (test 9.6 mg/dL 8.3-10.5 code=Calcium Level) Alk Phos (test code=Alk 77 U/L 40-129 Phos) Bilirubin Total (test 1.1 mg/dL 0.1-0.9 code=Bilirubin Total) Albumin Level (test 4.3 g/dL 3.5-5.2 code=Albumin Level) Protein Total (test 8.1 g/dL 6.4-8.3 code=Protein Total) ALT (test code=ALT) 24 U/L 1-41 AST (test code=AST) 33 U/L 1-40 Globulin (test 3.8 g/dL 2.9-3.1 code=Globulin) A/G Ratio (test code=A/G [...] is not provided, and the patient is -Citizen Of [place], multiply by 1.212. If sex is not [...] by the National Kidney Foundation, http://nkdep.nih.gov Alcohol [id number] 01:13:20 Test Item Value Reference Range Comments Ethanol Level (test <0.00 g/dL 0.00-0.01 Intoxicated 0.080 g/dL or more code=Ethanol Level) Ethanol Inst (test <0 code=Ethanol Inst) Comprehensive Metabolic [id number] 01:13:20 Test Item Value Reference Range Comments Sodium Level (test 135.0 mmol/L 135.0-145.0 code=Sodium Level) Potassium Level (test 3.6 mmol/L 3.5-5.1 code=Potassium Level) Chloride Level (test 100 mmol/L 98-105 code=Chloride Level) CO2 (test code=CO2) 21 mmol/L 22-29 Anion Gap (test 14 mmol/L 7-16 code=Anion Gap) BUN (test code=BUN) 14.50 mg/dL 6.00-20.00 Creatinine Level (test 1.30 mg/dL 0.70-1.20 code=Creatinine Level) BUN/Creat Ratio (test 11 code=BUN/Creat Ratio) Glucose Level (test 111 mg/dL 70-115 code=Glucose Level) Calcium Level (test 9.6 mg/dL 8.3-10.5 code=Calcium Level) Alk Phos (test code=Alk 77 U/L 40-129 Phos) Bilirubin Total (test 1.1 mg/dL 0.1-0.9 code=Bilirubin Total) Albumin Level (test 4.3 g/dL 3.5-5.2 code=Albumin Level) Protein Total (test 8.1 g/dL 6.4-8.3 code=Protein Total) ALT (test code=ALT) 24 U/L 1-41 AST (test code=AST) 33 U/L 1-40 Globulin (test 3.8 g/dL 2.9-3.1 code=Globulin) A/G Ratio (test code=A/G [...] is not provided, and the patient is -Citizen Of [place], multiply by 1.212. If sex is not [...] National Kidney Foundation, http://nkdep.nih.gov eGFR Non-AA (test 59.43 mL/min/1.73 eGFR (estimated code=eGFR Non-AA) m2 Glomerular [...] is not provided, and the patient is -Citizen Of [place], multiply by 1.212. If sex is not [...] recommended by the National Kidney Foundation, http://nkdep.nih.gov Urine Drug [id number] 00:09:44 Test Item Value Reference Range Comments Amphetamine Screen Ur (test POSITIVE Negative code=Amphetamine Screen Ur) Barbiturate Screen Ur (test Negative Negative code=Barbiturate Screen Ur) Benzodiazepines Ur (test POSITIVE Negative code=Benzodiazepines Ur) Cocaine Screen Ur (test POSITIVE Negative code=Cocaine Screen Ur) U Methadone Scr (test code=U Negative Negative Methadone Scr) Opiate Screen Ur (test Negative Negative code=Opiate Screen Ur) U PCP Scrn (test code=U PCP Negative Negative Scrn) Cannabinoid Screen Ur (test Negative Negative code=Cannabinoid Screen Ur) U TCA (test code=U TCA) Negative Negative The results of all drug screen tests are only preliminary. Clinical consideration and professional judgment should be applied to any drug of abuse test result, particularly when preliminary positive results are obtained. Please order a separate confirmatory test if desired. Urinalysis [id number] 00:00:41 Test Item Value Reference Range Comments UA WBC (test code=UA WBC) None Seen 0-5 UA RBC (test code=UA RBC) None Seen 0-5 UA Bacteria (test code=UA Bacteria) Few UA Squam Epithelial (test code=UA Squam 0-5 Epithelial) Urinalysis with Culture, if [id number] 23:51:43 Test Item Value Reference Range Comments UA Color (test code=UA Color) IRVIN Yellow UA Appear (test code=UA Appear) CLEAR Clear UA pH (test code=UA pH) 5 UA Spec Grav (test code=UA Spec 1.027 1.001-1.035 Grav) UA Glucose (test code=UA NEG Negative Glucose) UA Bili (test code=UA Bili) 1 mg/dL Negative UA Ketones (test code=UA 15 mg/dL Negative Ketones) UA Blood (test code=UA Blood) NEG Negative UA Protein (test code=UA 25 mg/dL Negative Protein) UA Urobilinogen (test code=UA 4 mg/dL >0.2 Urobilinogen) UA Nitrite (test code=UA NEG Negative Nitrite) UA Leuk Est (test code=UA Leuk NEG Negative Est) UA Micro Ind? (test code=UA Indicated Not Indicated Result created by rule Micro Ind?) GL_SJM_UA_MICRO_IND Automated [id number] 23:51:40 Test Item Value Reference Range Comments Neutro Auto (test code=Neutro Auto) 58.1 % 36.0-70.0 Lymph Auto (test code=Lymph Auto) 27.5 % 12.0-44.0 [place] Auto (test code=[place] Auto) 11.2 % 0.0-11.0 Eos, Auto (test code=Eos, Auto) 2.1 % 0.0-7.0 Basophil Auto (test code=Basophil Auto) 0.6 % 0.0-2.0 Neutro Absolute (test code=Neutro Absolute) 9.2 x10 1.6-7.4 Lymph Absolute (test code=Lymph Absolute) 4.37 x10 .50-4.60 [place] Absolute (test code=[place]man Absolute) 1.78 x10 .00-1.20 Eos Absolute (test code=Eos Absolute) 0.33 x10 0.00-0.74 Baso Absolute (test code=Baso Absolute) 0.10 x10 0.00-0.21 IG [id number] 23:51:40 Test Item Value Reference Range Comments IG (test code=IG) 0.5 % 0.0-5.0 IG Abs (test code=IG Abs) 0 x10 Complete Blood Count with [id number] 23:51:39 Test Item Value Reference Range Comments WBC (test code=WBC) 15.9 x10 4.4-10.5 RBC (test code=RBC) 4.70 x10 4.10-5.70 Hgb (test code=Hgb) 14.9 g/dL 13.4-17.4 Hct (test code=Hct) 42.8 % 38.7-52.0 MCV (test code=MCV) 91.10 fL 80.00-100.00 MCHC (test code=MCHC) 34.80 g/dL 32.00-37.50 RDW CV (test code=RDW CV) 13.1 % 11.5-14.5 MCH (test code=MCH) 31.7 pg 27.0-32.5 Platelets (test 410.0 x10 140.0-440.0 code=Platelets) MPV (test code=MPV) 9.6 fL Slide Review (test code=Slide Auto Auto Result created by Review) GL_SJM_SLIDE_REV_AUTO GL_SJM_XN_RFLX nRBC (test code=nRBC) 0 NRBC Abs (test code=NRBC Abs) 0.00 x10 Pos Diff XN (test code=Pos A Diff XN) IPF (test code=IPF) 0 % Troponin [id number] 09:45:49 Test Item Value Reference Range Comments [...] a diagnosis of chronic myocardial injury. Triiodothyronine [id number] 08:26:05 Test Item Value Reference Range Comments T3 Total (test code=T3 Total) 85.1 ng/dL 80.0-200.0 Thyroid Stimulating [id number] 08:24:29 Test Item Value Reference Range Comments TSH (test code=TSH) 12.330 mIU/mL 0.270-4.200 Thyroxine Free [id number] 08:24:29 Test Item Value Reference Range Comments T4 Free (test code=T4 Free) 0.966 ng/dL 0.930-1.700 RPR [id number] 12:49:16 Test Item Value Reference Range Comments RPR Qual (test code=RPR Qual) Non-Reactive Non-Reactive Reactive Control (test code=Reactive Control) Reactive Weak Reactive Control (test code=Weak Reactive Weak Reactive Control) Non-Reactive Control (test code=Non-Reactive Non-Reactive Control) Lot # (test code=Lot #) [id number] Expiration Dt (test code=Expiration Dt) 01-01-2020 Automated [id number] 07:50:05 Test Item Value Reference Range Comments Neutro Auto (test code=Neutro Auto) 61.4 % 36.0-70.0 Lymph Auto (test code=Lymph Auto) 27.1 % 12.0-44.0 Kingman Auto (test code=Kingman Auto) 7.9 % 0.0-11.0 Eos, Auto (test code=Eos, Auto) 2.3 % 0.0-7.0 Basophil Auto (test code=Basophil Auto) 0.7 % 0.0-2.0 Neutro Absolute (test code=Neutro Absolute) 8.8 x10 1.6-7.4 Lymph Absolute (test code=Lymph Absolute) 3.89 x10 .50-4.60 Kingman Absolute (test code=Kingman Absolute) 1.13 x10 .00-1.20 Eos Absolute (test code=Eos Absolute) 0.33 x10 0.00-0.74 Baso Absolute (test code=Baso Absolute) 0.10 x10 0.00-0.21 IG [id number] 07:50:05 Test Item Value Reference Range Comments IG (test code=IG) 0.6 % 0.0-5.0 IG Abs (test code=IG Abs) 0 x10 Complete Blood Count with [id number] 07:50:04 Test Item Value Reference Range Comments [...] IPF (test code=IPF) 0 % Thyroid Stimulating [id number] 07:49:53 Test Item Value Reference Range Comments TSH (test code=TSH) 12.640 mIU/mL 0.270-4.200 Lipid [id number] 07:43:10 Test Item Value Reference Range Comments Cholesterol Total (test 190 mg/dL 0-200 RISK OF HEART DISEASEPublished code=Cholesterol Total) by Citizen Of [place] Heart Association Analyte Optimal Borderline Increased RiskCHOL [...] Chol/HDL (test 6.6 ratio 0.0-5.0 code=Chol/HDL) Lipid [id number] 07:43:10 Test Item Value Reference Range Comments Cholesterol Total (test 190 mg/dL 0-200 RISK OF HEART DISEASEPublished code=Cholesterol Total) by Citizen [place] Heart [employer] Analyte Optimal Borderline Increased RiskCHOL [...] is LDL/HDL Ratio=LDL Calc/HDL Chol Comprehensive Metabolic [id number] 07:43:09 Test Item Value Reference Range Comments [...] (test code=A/G Ratio) 1.3 ratio Comprehensive Metabolic [id number] 07:43:09 Test Item Value Reference Range Comments [...] is not provided, and the patient is -Citizen Of [place], multiply by 1.212. If sex is not [...] the National Kidney Foundation, http://nkdep.nih.gov Comprehensive Metabolic [id number] 07:43:09 Test Item Value Reference Range Comments [...] is not provided, and the patient is -Citizen [place], multiply by 1.212. If sex is not [...] is not provided, and the patient is -Citizen Of [place], multiply by 1.212. If sex is not [...] by the National Kidney Foundation, http://nkdep.nih.gov Alcohol [id number] 12:03:52 Test Item Value Reference Range Comments Ethanol Level (test <0.00 g/dL 0.00-0.01 Intoxicated 0.080 g/dL or more code=Ethanol Level) Ethanol Inst (test <0 code=Ethanol Inst) Comprehensive Metabolic [id number] 12:03:51 Test Item Value Reference Range Comments [...] (test code=A/G Ratio) 1.1 ratio Comprehensive Metabolic [id number] 12:03:51 Test Item Value Reference Range Comments [...] is not provided, and the patient is -Citizen Of [place], multiply by 1.212. If sex is not [...] the National Kidney Foundation, http://nkdep.nih.gov Comprehensive Metabolic [id number] 12:03:51 Test Item Value Reference Range Comments [...] is not provided, and the patient is -Citizen [place], multiply by 1.212. If sex is not [...] is not provided, and the patient is -Citizen [place], multiply by 1.212. If sex is not [...] Kidney Foundation, http://nkdep.nih.gov Drugs of Abuse Urine [id number] 11:46:06 Test Item Value Reference Range Comments [...] code=Cannabinoid Screen Ur) Complete Blood Count with [id number] 11:31:26 Test Item Value Reference Range Comments [...] x10 IPF (test code=IPF) 0 % Automated [id number] 11:31:26 Test Item Value Reference Range Comments Neutro Auto (test code=Neutro Auto) 75.5 % 36.0-70.0 Lymph Auto (test code=Lymph Auto) 16.1 % 12.0-44.0 Kingman Auto (test code=Kingman Auto) 6.0 % 0.0-11.0 Eos, Auto (test code=Eos, Auto) 1.1 % 0.0-7.0 Basophil Auto (test code=Basophil Auto) 0.7 % 0.0-2.0 Neutro Absolute (test code=Neutro Absolute) 14.6 x10 1.6-7.4 Lymph Absolute (test code=Lymph Absolute) 3.13 x10 .50-4.60 Kingman Absolute (test code=Kingman Absolute) 1.16 x10 .00-1.20 Eos Absolute (test code=Eos Absolute) 0.21 x10 0.00-0.74 Baso Absolute (test code=Baso Absolute) 0.13 x10 0.00-0.21 IG [id number] 11:31:26 Test Item Value Reference Range Comments IG (test code=IG) 0.6 % 0.0-5.0 IG Abs (test code=IG Abs) 0 x10 Glycosylated [id number] 10:09:00 Test Item Value Reference Range Comments HBA1c (test code=HBA1C) 5.7 % 4.8-5.9 Basic Metabolic [id number] 09:44:00 Test Item Value Reference Range Comments [...] race is not provided, and the patient isAfrican-Citizen Of [place], multiply by 1.212. If sex is not [...] the National Kidney Foundation,http://nkdep.nih .gov CBC with [id number] 09:31:00 Test Item Value Reference Range Comments [...] Lymph Abs (test code=ALYMPH) 5.0 K/cumm 0.5-4.6 Kingman Abs (test code=AMONO) 0.9 K/cumm 0.0-1.2 Eos Abs (test code=AEOS) 0.29 K/cumm 0.00-0.74 Baso Abs (test code=ABASO) 0.1 K/cumm 0.00-0.21 RPR, [id number] 13:38:00 Test Item Value Reference Range Comments RPR (test code=RPR) Non-Reactive Non-Reactive Thyroid Stimulating Hormone (TSH)2016-11-27 07:41:00 Test Item Value Reference Range Comments TSH (test code=TSH) 2.18 mIU/mL 0.270-4.200 Lipid [id number] 07:33:00 Test Item Value Reference Range Comments Cholesterol (test 226 mg/dL 0-200 code=CHOL) Triglycerides (test 229 mg/dL 9-200 code=TRIG) HDL (test code=HDL) 27 mg/dL 40-60 Chol/HDL (test 8.4 Ratio 0.0-5.0 code=CHOLPHDL) LDL, Calculated (test 153 0-130 (NOTE)RISK OF HEART code=LDLC) DISEASEPublished by Citizen Of [place] Heart AssociationAnalyte Optimal Boderline Increased RiskCHOL <200 200-239 >240TRIG <150 150-199 >200HDL Male: >60 <40HDL Female: >60 <50LDL <100 130-159 >160LDL NEAR OPTIMAL IS 100-129 VLDL (test code=VLDL) 46 mg/dL 5-40 LDL/HDL (test code=LDLPHDL) 6 Comprehensive Metabolic [id number] 17:07:00 Test Item Value Reference Range Comments [...] race is not provided, and the patient isAfrican-Citizen Of [place], multiply by 1.212. If sex is not provided, and thepatient is female, multiply by 0.742. Results for patients <18 years ofage have not been validated by the MDRD study and should be interpretedwith caution.eGFR Result Interpretation:eGFR > or=60 is in the Normal RangeeGFR < 60 may mean kidney diseaseeGFR < 15 may mean kidney failureRanges recommended by the National Kidney Foundation,http://nkdep.nih .gov [id number] 17:07:00 Test Item Value Reference Range Comments [...] Urine (test <0.01 g/dL 0.00-0.01 code=ETOHU) Urinalysis [id number] 16:52:00 Test Item Value Reference Range Comments Color (test code=COLOR) Yellow Yellow,Straw,Pl yellow Clarity (test code=CLAR) Clear Clear Specific Rachel (test code=SPGR) 1.027 1.001-1.035 pH (test code=PH) [...] Bacteria (test code=BACT) Few /HPF CBC with [id number] 16:43:00 Test Item Value Reference Range Comments [...] Lymph Abs (test code=ALYMPH) 5.7 K/cumm 0.5-4.6 [place] Abs (test code=AMONO) 1.3 K/cumm 0.0-1.2 Eos Abs (test code=AEOS) 0.17 K/cumm 0.00-0.74 Baso Abs (test code=ABASO) 0.1 K/cumm 0.00-0.21
[2019-02-22] MEDS ORDERED: HALOPERIDOL LACT 5 MG/ML INJ ONE (18:24)
[2019-02-22] MEDS ORDERED: LORazepam 2 MG/ML VIAL ONE (18:24)
[2019-02-22] MEDS ORDERED: DIPHENHYDRAMINE 50 MG/ML VIAL ONE (18:24)
[2019-02-22] MEDS ORDERED: NA CHLORIDE 0.9% 1,000 ML ONE ×2 (18:24→23:13)
[2019-02-22 18:57] LABS: Absolute Lymphocytes (CBC) 5.2 K/uL (0.7-4.9); Basophils % 0.9 % (0-1.3); Lymphocytes % 27.5 % (15.3-44.8); RBC Red Blood Cell Count 5.03 M/uL (4.33-5.43)
[2019-02-22 19:39] LABS: ALT/SGPT 40 U/L (12-78); AST/SGOT 26 U/L (15-37); Albumin 4.1 g/dL (3.4-5.0); Alkaline Phosphatase 94 U/L (45-117); BUN Blood Urea Nitrogen 14 mg/dL (7-18); Bicarbonate 24 mmol/L (21-32); Bilirubin Direct 0.2 mg/dL (0-0.2); Glucose Level 105 mg/dL (74-106); Potassium 3.3 mmol/L (3.5-5.1); Protein, Total 8.7 g/dL (6.4-8.2); Sodium Level 136 mmol/L (136-145)
[2019-02-22 19:57] LABS: Urine Blood NEGATIVE (NEG); Urine Glucose NEGATIVE (NEG); Urine Protein NEGATIVE (NEG); Urine pH 7.5 (5.0-7.0)
[2019-02-22 20:11] LABS: Barbiturates NEGATIVE (NEGATIVE); Benzodiazepines NEGATIVE (NEGATIVE); Cocaine POSITIVE (NEGATIVE); METHAMPHETAM POSITIVE (NEGATIVE); Methadone NEGATIVE (NEGATIVE); Opiates NEGATIVE (NEGATIVE); Phencyclidine NEGATIVE (NEGATIVE); THC Cannibis NEGATIVE (NEGATIVE)
[2019-02-22 20:44] LABS: Protime INR 0.98
--- NOTE | 2019-02-23 02:33 | EDPHYS ---
Physician Documentation [facility] Name: Mohan Lou Age: 48 yrs Sex: Male : 1970 Arrival Date: 02/22/2019 Time: 17:58 Bed 18 Private MD: ED Physician Tommy Chiang HPI: 02/22 19:26 This 48 yrs old Male presents to ER via Law Enforcement with complaints of pm1 Paranoia, Hearing voices. 19:26 The patient presents to the emergency department with paranoia. Past psychiatric pm1 history: Prior diagnosis: schizophrenia, Psychiatric medications include: Geodon, hydroxyzine, Prozac, risperidone. Associated signs and symptoms: Pertinent positives; hallucinations, substance abuse, Pertinent negatives: homicidal ideation, suicide ideation. Severity of symptoms: Pain is currently a 0 / 10. The patient has experienced similar episodes in the past, multiple times. The patient has been recently seen at the [facility] Emergency Department, last week, for similar complaints. Patient brought into the ER by [employer] police coxswain for driving erratic on the highway. Patient reports erratic driving due to hearing voices of people chasing him. 19:26 Patient admits to drug use, amphetamines this AM. pm1 Historical: - Allergies: 18:50 No Known Allergies; mg2 - Home Meds: 18:50 Geodon Oral [Active]; Hydroxyzine Oral [Active]; Prozac Oral [Active]; risperidone Oral mg2 [Active]; - PMHx: 18:50 Anxiety; Back pain; Borderline Diabetes; Depression; Hepatitis C; Hypertension; Schizo mg2 affective disorder; - PSHx: 18:50 Appendectomy; mg2 - Immunization history:: Flu vaccine status is unknown. - Social history:: Smoking status: Patient uses tobacco products, smokes one pack cigarettes per day. Patient uses street drugs, Methamphetamine (Meth). - Ebola Screening: : No symptoms or risks identified at this time. ROS: 19:26 Constitutional: Negative for fever, chills, and weight loss, Eyes: Negative for injury, pm1 pain, redness, and discharge, ENT: Negative for injury, pain, and discharge, Neck: Negative for injury, pain, and swelling, Cardiovascular: Negative for chest pain, palpitations, and edema, Respiratory: Negative for shortness of breath, cough, wheezing, and pleuritic chest pain, Abdomen/GI: Negative for abdominal pain, nausea, vomiting, diarrhea, and constipation, Back: Negative for injury and pain, : Negative for injury, bleeding, discharge, and swelling, MS/Extremity: Negative for injury and deformity, Skin: Negative for injury, rash, and discoloration, Neuro: Negative for headache, weakness, numbness, tingling, and seizure. 19:26 Psych: Positive for auditory hallucinations, Drug abuse, Negative for homicidal ideation, suicidal ideation. Exam: 19:26 Constitutional: This is a well developed, well nourished patient who is awake, alert, pm1 and in no acute distress. Head/Face: Normocephalic, atraumatic. Eyes: Pupils equal round and reactive to light, extra-ocular motions intact. Lids and lashes normal. Conjunctiva and sclera are non-icteric and not injected. Cornea within normal limits. Periorbital areas with no swelling, redness, or edema. ENT: Nares patent. No nasal discharge, no septal abnormalities noted. Tympanic membranes are normal and external auditory canals are clear. Oropharynx with no redness, swelling, or masses, exudates, or evidence of obstruction, uvula midline. Mucous membranes moist. Neck: Trachea midline, no thyromegaly or masses palpated, and no cervical lymphadenopathy. Supple, full range of motion without nuchal rigidity, or vertebral point tenderness. No Meningismus. Chest/axilla: Normal chest wall appearance and motion. Nontender with no deformity. No lesions are appreciated. Cardiovascular: Regular rate and rhythm with a normal S1 and S2. No gallops, murmurs, or rubs. Normal PMI, no JVD. No pulse deficits. Respiratory: Lungs have equal breath sounds bilaterally, clear to auscultation and percussion. No rales, rhonchi or wheezes noted. No increased work of breathing, no retractions or nasal flaring. Abdomen/GI: Soft, non-tender, with normal bowel sounds. No distension or tympany. No guarding or rebound. No evidence of tenderness throughout. Back: No spinal tenderness. No costovertebral tenderness. Full range of motion. Skin: Warm, dry with normal turgor. Normal color with no rashes, no lesions, and no evidence of cellulitis. MS/ Extremity: Pulses equal, no cyanosis. Neurovascular intact. Full, normal range of motion. 19:26 Neuro: Orientation: is normal, Motor: is normal, moves all fours, Gait: is steady, at a normal pace, without difficulty. 19:26 Psych: Behavior/mood is anxious, Affect is animated, Oriented to person, place, time, Patient has no thoughts/intents to harm self or others. Vital Signs: 18:09 BP 145 / 109; Pulse 129; Resp 18; Temp 97.7; Pulse Ox 100% on R/A; Weight 102.06 kg; mg2 Height 5 ft. 7 in. (170.18 cm); 21:46 BP 148 / 106; Pulse 104; Resp 18; Temp 98.1; Pulse Ox 100% on R/A; mg2 02/23 02:00 BP 152 / 104; Pulse 97; Resp 18; Pulse Ox 99% on R/A; wh 02/22 18:09 Body Mass Index 35.24 (102.06 kg, 170.18 cm) mg2 MDM: 02/22 18:10 Patient medically screened. pm1 23:12 Data reviewed: vital signs. Data interpreted: Pulse oximetry: on room air is 100 %. pm1 Interpretation: normal. 02/23 02:06 Counseling: I had a detailed discussion with the patient and/or guardian regarding: the pm1 historical points, exam findings, and any diagnostic results supporting the discharge/admit diagnosis, lab results, the need for outpatient follow up, a psychiatrist, drug rehabilitation , to return to the emergency department if symptoms worsen or persist or if there are any questions or concerns that arise at home. 02:06 ED course: Patient denies suicidal and homicidal ideation. Patient no longer having any pm1 hallucinations. Appears that the methamphetamine has worn off and the patient wants to go home. Therefore will discharge the patient home to follow up with psychiatry and drug rehabilitation. 02/22 18:17 Order name: Acetaminophen; Complete Time: 19:45 pm1 02/22 18:17 Order name: Basic Metabolic Panel; Complete Time: 19:45 pm1 02/22 18:17 Order name: CBC with Diff; Complete Time: 19:45 pm1 02/22 18:17 Order name: ETOH Level; Complete Time: 19:45 pm1 02/22 18:17 Order name: Hepatic Function; Complete Time: 19:45 pm1 02/22 18:17 Order name: PT-INR; Complete Time: 21:42 pm1 02/22 18:17 Order name: Ptt, Activated; Complete Time: 21:42 pm1 02/22 18:17 Order name: Salicylate; Complete Time: 20:31 pm1 02/22 18:17 Order name: Urine Drug Screen; Complete Time: 20:31 pm1 02/22 19:45 Order name: Urine Dipstick--Ancillary (enter results); Complete Time: 20:31 mt 02/22 18:17 Order name: EKG; Complete Time: 18:19 pm1 02/22 18:17 Order name: EKG - Nurse/Tech; Complete Time: 18:47 pm1 02/22 18:17 Order name: IV Saline Lock; Complete Time: 18:39 pm1 02/22 18:17 Order name: Labs collected and sent; Complete Time: 18:39 pm1 02/22 18:17 Order name: Urine Dipstick-Ancillary (obtain specimen); Complete Time: 19:32 pm1 Administered Medications: 02/22 18:46 Drug: HALdol 5 mg Route: IVP; Site: right antecubital; mg2 21:49 Follow up: Response: No adverse reaction; Marked relief of symptoms mg2 18:46 Drug: Benadryl 25 mg Route: IVP; Site: right antecubital; mg2 21:49 Follow up: Response: No adverse reaction; Marked relief of symptoms mg2 18:47 Drug: NS 0.9% 1000 ml Route: IV; Rate: 1000 ml; Site: right antecubital; mg2 02/23 02:32 Follow up: Response: No adverse reaction; IV Status: Completed infusion 02/22 18:47 Drug: Ativan 1 mg Route: IVP; Site: right antecubital; mg2 21:49 Follow up: Response: No adverse reaction; Marked relief of symptoms mg2 21:49 Follow up: Response: No adverse reaction; Marked relief of symptoms mg2 23:18 Drug: NS 0.9% 1000 ml Route: IV; Rate: 1000 ml; Site: right antecubital; mg2 02/23 02:32 Follow up: Response: No adverse reaction; IV Status: Completed infusion Disposition: 02/23/19 02:08 Discharged to Home. Impression: Cocaine abuse, Other stimulant abuse - methamphetamine abuse, Schizophrenia. - Condition is Stable. - Discharge Instructions: Finding Treatment for Addiction, Stimulant Use Disorder-Cocaine, Schizophrenia, Stimulant Use Disorder-Methamphetamines. - Medication Reconciliation Form, Thank You Letter, Antibiotic Education, Prescription Opioid Use form. - Follow up: Emergency Department; When: As needed; Reason: Worsening of condition. Follow up: Private Physician; When: 2 - 3 days; Reason: Recheck today's complaints, Continuance of care, Re-evaluation by your physician. - Problem is new. - Symptoms have improved. Addendum: 02/24/2019 07:58 Co-signature as Attending Physician, Tommy Chiang MD I agree with the assessment and k dr plan of care. Signatures: Dispatcher [employer] EDMS Tommy Chiang MD MD [facility] Sinan Herrera NP [employer] O[employer] pm1 Nahomy Mendez Michele, RN RN mg2 Corrections: (The following items were deleted from the chart) 02/23 02:41 02:08 02/23/2019 02:08 Discharged to Home. Impression: Cocaine abuse; Other stimulant wh abuse - methamphetamine abuse; Schizophrenia. Condition is Stable. Forms are Medication Reconciliation Form, Thank You Letter, Antibiotic Education, Prescription Opioid Use. Follow up: Emergency Department; When: As needed; Reason: Worsening of condition. Follow up: Private Physician; When: 2 - 3 days; Reason: Recheck today's complaints, Continuance of care, Re-evaluation by your physician. Problem is new. Symptoms have improved. pm1
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
[2019-02-23 04:06] VITALS: TEMP 98.1
[2019-02-23 04:08] VITALS: BP 152/104; O2SAT 99
--- NOTE | 2019-02-23 06:32 | EKG ---
Test Date: 2019-02-22 Test Time: 18:49:51 New Business Clerk: LMT MEASUREMENT RESULTS: Intervals: Rate: 119 DC: 150 QRSD: 86 QT: 330 QTc: 464 [place]: P: 26 DC: 150 QRS: -31 T: 24 INTERPRETIVE STATEMENTS: Sinus tachycardia Left axis deviation Anterolateral infarct, age undetermined Abnormal ECG Compared to ECG 02/17/2019 02:51:32 Left-axis deviation now present Myocardial infarct finding still present Electronically Signed On 02-23-19 06:32:08 LINK FABRIC MACHINE OPERATOR by Ko Elena
== END 2019-02-23 02:41 | disposition home or self-care (01) ==
LOC: ER 17:54
DX: F14.10 Cocaine abuse, uncomplicated (principal); F15.10 Other stimulant abuse, uncomplicated; F20.9 Schizophrenia, unspecified; I10 Essential (primary) hypertension; F17.210 Nicotine dependence, cigarettes, uncomplicated; R73.03 Prediabetes
CPT/HCPCS: 36415; 80048; 80076; 80307; 80320; 80329; 81003; 85025; 85610; 85730; 93005; 96361; 96374; 96375; 99284; J1200; J1630; J7030